=== PATIENT | male | born 1940 | race Caucasian/White ===

== ENCOUNTER 2022-10-21 16:07 | Inpatient (IN) | payer MEDICARE, OTHER, SELFPAY ==
[2022-10-21] VITALS (18 sets, daily range): BP systolic 119–155; BP diastolic 54–80; PULSE 85–106; RESP 24–39; TEMP 37.2–37.3; O2SAT 89–95; BMI 27.8
--- NOTE | 2022-10-21 16:09 | DI.RAD.S_ITS ---
PROCEDURE: XR CHEST 1V INDICATIONS: Shortness of breath TECHNIQUE: One view of the chest was acquired. COMPARISON: None. FINDINGS: Surgical changes and devices: Right chest wall port is seen. Lungs and pleura: Bibasilar atelectasis. Diffuse airspace opacities in the right lung. Mediastinum: Mediastinal contours appear normal. Heart size is normal. Bones and chest wall: No suspicious bony lesions. Overlying soft tissues appear unremarkable. IMPRESSION: Bibasilar atelectasis and diffuse airspace opacities in the right perihilar lung. Mild CHF is a consideration versus a diffuse pneumonia. Dictated by: Mathew Walker M.D. on 10/21/2022 at 17:30 Approved by: Mathew Walker M.D. on 10/21/2022 at 17:31
--- NOTE | 2022-10-21 16:30 | ED_ITS ---
HPI - General Adult General Chief complaint: Shortness of Breath/Dyspnea Stated complaint: SOB, Chills Time Seen by Provider: 10/21/22 16:08 Source: patient and EMS Mode of arrival: EMS History of Present Illness HPI narrative: Patient is an 81-year-old male. Does have a history of lung cancer. Is not currently receiving chemotherapy because he developed pneumonia while on the treatment. They took him off the treatment they thought that maybe this could be causing his issues. He is not currently on any antibiotics. He is scheduled to get a repeat CT scan sometime in the near future. He does have a drain in his left chest to drain often effusion. His does this. Earlier today he had chills him what essentially sound like rigors. He states that he was having short of breath. No chest discomfort. They did drain more off the left side of his chest than normal but it was the same color and consistency. No abdominal pain. No fevers. No belly pain. Related Data Allergies Allergy/AdvReac Type Severity Reaction Status Date / Time No Known Drug Allergies Allergy Verified 10/21/22 19:18 Review of Systems Review of Systems ROS Unobtainable: All systems reviewed & are unremarkable except as noted in HPI and below Patient History Medical History COPD (chronic obstructive pulmonary disease) Lung cancer Social History Smoking Status: Never smoker Smoking Status: Never smoker alcohol intake frequency: 0-2 drinks per day Exam Initial Vital Signs Initial Vital Signs: Vital Signs Temperature 99.2 F 10/21/22 16:10 Pulse Rate 103 H 10/21/22 16:10 Respiratory Rate 30 H 10/21/22 16:10 Blood Pressure 155/80 H 10/21/22 16:10 Pulse Oximetry 90 L 10/21/22 16:10 Oxygen Delivery Method Room Air 10/21/22 16:10 HENMT Head: normal to inspection and normocephalic Resp Effort & Inspection: not labored and tachypneic Auscultation: rhonchi Cardio Rate: tachycardic Rhythm: regular rhythm GI Inspection: normal to inspection and non-distended Skin General: no rashes or lesions noted Neuro General: patient alert, patient awake and moves all extremities Cognition: normal cognition Speech: speech normal Extrem General: normal to inspection and capillary refill normal Psych Appearance: grossly normal and well kempt Course Orders Ordered: ED Orders 10/21/22 16:09 XR chest 1V Stat 10/21/22 16:17 EKG-12 Lead Stat 10/21/22 16:50 Complete Blood Count AUTO DIFF Stat Comprehensive Metabolic Panel Stat Lactate (Lactic Acid) Stat Lipase Stat Magnesium Stat NT-proBNP (BNP-Adult 18+) Stat PTT Partial Thromboplastin Robert Stat Procalcitonin Stat Prothrombin Time INR Stat Troponin & CK Cardiac Panel Stat 10/21/22 17:52 ABG [Arterial Blood Gas] Stat 10/21/22 18:22 Blood Culture Stat 10/21/22 18:33 Respiratory Panel (Film Array) Stat 10/21/22 19:27 Sputum Culture Stat Discontinued Medications Ceftriaxone Sodium 1,000 mg/ (Sodium Chloride) 100 mls @ 200 mls/hr IV NOW ONE Stop: 10/21/22 19:12 Last Admin: 10/21/22 19:25 Dose: 200 mls/hr Documented By: MADELEINE Azithromycin 500 mg/ Dextrose 250 mls @ 250 mls/hr IV NOW ONE Stop: 10/21/22 19:12 Vital Signs Vital signs: Vital Signs - 8 hr 10/21/22 16:10 10/21/22 16:15 10/21/22 16:16 Temperature 99.2 F Pulse Rate 103 H 104 H 103 H Respiratory Rate 30 H 34 H 39 H Blood Pressure 155/80 H Pulse Oximetry 90 L 89 L 93 Oxygen Delivery Method Room Air Room Air Nasal Cannula Oxygen Flow Rate 2 10/21/22 16:16 10/21/22 16:30 10/21/22 17:00 Temperature Pulse Rate 102 H 101 H Respiratory Rate 31 H 31 H Blood Pressure 134/68 Pulse Oximetry 92 92 Oxygen Delivery Method Nasal Cannula Oxygen Flow Rate 2 10/21/22 17:30 Temperature Pulse Rate 101 H Respiratory Rate 32 H Blood Pressure Pulse Oximetry 92 Oxygen Delivery Method Oxygen Flow Rate Medical Decision Making Medical Records Medical records reviewed: Yes I reviewed the patient's medical records. Lab Data Lab results reviewed: Yes I reviewed the patient's lab results. 10/21/22 16:50 10/21/22 16:50 Labs: Lab Results 10/21/22 10/21/22 10/21/22 Range/Units 16:50 16:50 16:50 WBC 14.9 H (4.5-11.0) X10^3/uL RBC 4.19 L (4.5-5.9) X10^6/uL Hgb 12.3 L (13.5-17.5) g/dL Hct 37.5 L (41-53) % MCV 89.5 (80-100) fL MCH 29.4 (26-34) PG MCHC 32.9 (30-36) % RDW 15.7 H (11.6-14.8) % Plt Count 356 (150-400) X10^3/uL Neut % (Auto) 89.0 H (50-75) % Lymph % (Auto) 4.1 L (25-40) % Perkins % (Auto) 5.7 (3-14) % Eos % (Auto) 0.6 L (2-4) % Baso % (Auto) 0.6 (0-2) % Neut # (Auto) 85276 H (2560-4075) /uL Lymph # (Auto) 600 L (2116-9016) /uL Perkins # (Auto) 800 (0-900) /uL Eos # (Auto) 100 (0-450) /uL Baso # (Auto) 100 (0-100) /uL PT 17.6 H (10.1-12.7) SECONDS INR 1.5 H (0.9-1.3) APTT 33 (26-36) SECONDS ABG pH (7.35-7.45) ABG pCO2 (35-45) mmHg ABG pO2 (80-100) mmHg ABG HCO3 (23-27) mmol/L ABG Total CO2 (23-27) mmol/L ABG O2 Saturation (95-100) % ABG Base Excess (-2-3) mmol/L FiO2 Sodium 137 (137-145) mmol/L Potassium 3.7 (3.4-5.1) mmol/L Chloride 101 (98-107) mmol/L Carbon Dioxide 28 (22-32) mmol/L BUN 19 (9-20) mg/dL Creatinine 0.70 (0.66-1.25) mg/dL Estimated GFR > 60 (>60) mL/min BUN/Creatinine Ratio 27.1 H (6-22) Glucose 154 H (80-110) mg/dL Lactate (0.7-2.1) mmol/L Calcium 8.7 (8.4-10.2) mg/dL Magnesium 1.7 (1.6-2.3) mg/dL Total Bilirubin 0.8 (0.2-1.3) mg/dL AST 30 (17-59) IU/L ALT 22 (<50) IU/L Alkaline Phosphatase 108 (38-126) U/L Total Creatine Kinase 45 L (55-170) U/L CK-MB (CK-2) TNP CK-MB (CK-2) Rel Index TNP Troponin I < 0.012 (0.01-0.034) ng/mL NT-Pro-B Natriuret Pep (<450) pg/mL Total Protein 7.3 (6.3-8.2) g/dL Albumin 3.5 (3.5-5.0) g/dL Globulin 3.8 (1.7-4.1) g/dL Albumin/Globulin Ratio 0.9 L (1.0-2.8) Lipase 93 (23-300) U/L Procalcitonin 0.21 (<0.5) ng/mL 10/21/22 10/21/22 10/21/22 Range/Units 16:50 16:50 17:52 WBC (4.5-11.0) X10^3/uL RBC (4.5-5.9) X10^6/uL Hgb (13.5-17.5) g/dL Hct (41-53) % MCV (80-100) fL MCH (26-34) PG MCHC (30-36) % RDW (11.6-14.8) % Plt Count (150-400) X10^3/uL Neut % (Auto) (50-75) % Lymph % (Auto) (25-40) % Perkins % (Auto) (3-14) % Eos % (Auto) (2-4) % Baso % (Auto) (0-2) % Neut # (Auto) (6183-4056) /uL Lymph # (Auto) (2498-9103) /uL Perkins # (Auto) (0-900) /uL Eos # (Auto) (0-450) /uL Baso # (Auto) (0-100) /uL PT (10.1-12.7) SECONDS INR (0.9-1.3) APTT (26-36) SECONDS ABG pH 7.48 H (7.35-7.45) ABG pCO2 33.2 L (35-45) mmHg ABG pO2 53 L (80-100) mmHg ABG HCO3 25 (23-27) mmol/L ABG Total CO2 26 (23-27) mmol/L ABG O2 Saturation 90 L (95-100) % ABG Base Excess 1.0 (-2-3) mmol/L FiO2 21 Sodium (137-145) mmol/L Potassium (3.4-5.1) mmol/L Chloride (98-107) mmol/L Carbon Dioxide (22-32) mmol/L BUN (9-20) mg/dL Creatinine (0.66-1.25) mg/dL Estimated GFR (>60) mL/min BUN/Creatinine Ratio (6-22) Glucose (80-110) mg/dL Lactate 1.9 (0.7-2.1) mmol/L Calcium (8.4-10.2) mg/dL Magnesium (1.6-2.3) mg/dL Total Bilirubin (0.2-1.3) mg/dL AST (17-59) IU/L ALT (<50) IU/L Alkaline Phosphatase (38-126) U/L Total Creatine Kinase (55-170) U/L CK-MB (CK-2) CK-MB (CK-2) Rel Index Troponin I (0.01-0.034) ng/mL NT-Pro-B Natriuret Pep 82 (<450) pg/mL Total Protein (6.3-8.2) g/dL Albumin (3.5-5.0) g/dL Globulin (1.7-4.1) g/dL Albumin/Globulin Ratio (1.0-2.8) Lipase (23-300) U/L Procalcitonin (<0.5) ng/mL Imaging Data Chest x-ray: Radiologist's Impression: PROCEDURE:? XR CHEST 1V ? INDICATIONS:? Shortness of breath ? TECHNIQUE:? One view of the chest was acquired.? ? COMPARISON:? None. ? FINDINGS:? ? Surgical changes and devices:? Right chest wall port is seen. ? Lungs and pleura:? Bibasilar atelectasis.? Diffuse airspace opacities in the right lung. ? Mediastinum:? Mediastinal contours appear normal.? Heart size is normal.? ? Bones and chest wall:? No suspicious bony lesions.? Overlying soft tissues appear unremarkable.? ? IMPRESSION: ? Bibasilar atelectasis and diffuse airspace opacities in the right perihilar lung.? Mild CHF is a consideration versus a diffuse pneumonia. ECG Data Attestation: I personally reviewed and interpreted this ECG as follows: Interpretation: Sinus tachycardia Ventricular rate 104 Right bundle-branch block Normal QRS No ST T wave changes MDM Narrative Medical decision making narrative: Patient states he feels much better with the oxygen. His chest x-ray concerning for pneumonia however it appears that he has been dealing with this for some time now. Unsure this is new although earlier today he did have what he essentially describes as rigors. He also has a leukocytosis with a left shift. His lactate is normal cared procalcitonin is unremarkable. He is tachypneic. Sinus rhythm on his EKG. Cultures were obtained. Antibiotics started. Discussed the case with Dr. Villalba. We will admit for further evaluation and treatment. Discussed the need for admission with the patient his at bedside. They expressed understanding agreement as well. Discharge Plan Departure Patient Disposition: Admitted As Inpatient Clinical Impression: Pneumonia, Hypoxia, Lung cancer Admit Date/Time: 10/21/22 19:31
[2022-10-21 17:05] LABS: Add Manual Diff / Slide Review NO; Basophils Absolute Auto 100 /uL (0-100); Basophils Percent Auto 0.6 % (0-2); Eosinophils Absolute Auto 100 /uL (0-450); Eosinophils Percent Auto 0.6 % (2-4); Hematocrit 37.5 % (41-53); Hemoglobin 12.3 g/dL (13.5-17.5); Lymphocytes Absolute Auto 600 /uL (1100-4500); Lymphocytes Percent Auto 4.1 % (25-40); Mean Corpuscular HGB Conc 32.9 % (30-36); Mean Corpuscular Hemoglobin 29.4 PG (26-34); Mean Corpuscular Volume 89.5 fL (80-100); Monocytes Absolute Auto 800 /uL (0-900); Monocytes Percent Auto 5.7 % (3-14); Neutrophils Absolute Auto 13200 /uL (1500-7000); Platelet Count 356 X10^3/uL (150-400); Red Blood Cell Count 4.19 X10^6/uL (4.5-5.9); Red Cell Distribution Width 15.7 % (11.6-14.8); White Blood Cell Count 14.9 X10^3/uL (4.5-11.0)
[2022-10-21 17:18] LABS: INR 1.5 (0.9-1.3); Prothrombin Time 17.6 SECONDS (10.1-12.7)
[2022-10-21 17:21] LABS: PTT Partial Thromboplastin Tim 33 SECONDS (26-36)
[2022-10-21 17:24] LABS: Lactate (Lactic Acid) 1.9 mmol/L (0.7-2.1)
[2022-10-21 17:26] LABS: Alanine Aminotransferase 22 IU/L (<50); Albumin 3.5 g/dL (3.5-5.0); Albumin Globulin Ratio 0.9 (1.0-2.8); Alkaline Phosphatase 108 U/L (38-126); Aspartate Aminotransferase 30 IU/L (17-59); BUN Creatinine Ratio 27.1 (6-22); Bilirubin Total 0.8 mg/dL (0.2-1.3); Blood Urea Nitrogen 19 mg/dL (9-20); Calcium 8.7 mg/dL (8.4-10.2); Carbon Dioxide 28 mmol/L (22-32); Chloride 101 mmol/L (98-107); Creatine Kinase 45 U/L (55-170); Estimated Glomerular Filt Rate > 60 mL/min (>60); Globulin 3.8 g/dL (1.7-4.1); Glucose 154 mg/dL (80-110); HEMOLYSIS < 15 (0-50); Lipase 93 U/L (23-300); Magnesium 1.7 mg/dL (1.6-2.3); Potassium 3.7 mmol/L (3.4-5.1); Sodium 137 mmol/L (137-145); Total Protein 7.3 g/dL (6.3-8.2)
[2022-10-21 17:36] LABS: NT-proBNP (BNP-Adult 18+) 82 pg/mL (<450)
[2022-10-21 17:37] LABS: Troponin I < 0.012 ng/mL (0.01-0.034)
[2022-10-21 17:42] LABS: Procalcitonin 0.21 ng/mL (<0.5)
[2022-10-21 19:22] LABS: Fractionated Inspired Oxygen 21; HCO3 ABG 25 mmol/L (23-27); Oxygen Saturation ABG 90 % (95-100); PCO2 ABG 33.2 mmHg (35-45); PO2 ABG 53 mmHg (80-100); TCO2 ABG 26 mmol/L (23-27); pH ABG 7.48 (7.35-7.45)
[2022-10-21] MEDS: cefTRIAXone 1,000 MG in SODIUM CHLORIDE 0.9% 100 ML 200 MG IV (19:25)
[2022-10-21 19:47] LABS: Adenovirus Not Detected (Not Detect); B. parapertussis Not Detected (Not Detecte); Bordetella pertussis Not Detected (Not Detecte); Chlamydophila pneumoniae Not Detected (Not Detect); Coronavirus 229E Not Detected (Not Detect); Coronavirus HKU1 Not Detected (Not Detect); Coronavirus NL 63 Not Detected (Not Detect); Coronavirus OC43 Not Detected (Not Detect); Human Metapneumovirus Not Detected (Not Detect); Human Rhinovirus/Enterovirus Not Detected (Not Detect); Influenza A Not Detected (Not Detect); Influenza B Not Detected (Not Detect); Mycoplasma pneumoniae Not Detected (Not Detect); Parainfluenza Virus 1 Not Detected (Not Detect); Parainfluenza Virus 2 Not Detected (Not Detect); Parainfluenza Virus 3 Not Detected (Not Detect); Parainfluenza Virus 4 Not Detected (Not Detect); Respiratory Syncytial Virus Not Detected (Not Detect); SARS- CoV-2 Not Detected (Not Detecte)
[2022-10-21] MEDS: AZITHROMYCIN 500 MG in DEXTROSE 5% IN WATER 250 ML 250 MG IV (20:11)
--- NOTE | 2022-10-21 20:33 | P.HP_ITS ---
History of Present Illness History of Present Illness Date Patient Seen: 10/21/22 Time Patient Seen: 23:00 Chief complaint: SOB, Chills Narrative: Mr. Thompson is an 81M with PMH COPD, former smoker, lung cancer who presents to the hospital with left sided pleuritic chest pain, shortness of breath, and chills/rigors. He was diagnosed with stage 4 lung cancer a few months ago. He gets his medical care at [facility]. He was having issues with recurrent malignant effusion so has left sided pleural drain in place. Over the last day he has noted slightly more draining from the catheter. Otherwise the fluid looks similar to his baseline. He is taking eliquis, but he is not clear for what, he does not think he has blood clots or a history of arrhythmia. His last dose of Keytruda was approximately 8-9 weeks ago, and he has not had additional doses because of concern that he has developed pneumonia while on this, or because there is concern for a reaction. He is not aware if his treatment is palliative, or if his cancer is responding to treatment. In the ED workup was done, vitals notable for temp 99.2, heart rate 100s, respiratory rate 30s, blood pressure 150s/80s, sats 89% on room air. He was placed on oxygen and felt somewhat improved. Labs reviewed by me and notable for WBC 14.9, hgb 12.3, plts 365. Creatinine 0.70. Inr 1.5. Troponin negative. [place] 1.9. BNP 82. Chest xray reviewed by me and showed bilateral infiltrates and possible small left pleural effusion. He was ordered for antibiotic and admitted for further treatment. [facility] Medical History COPD (chronic obstructive pulmonary disease) Lung cancer Social History household members: spouse Smoking Status: Former smoker Meds Home Medications and Allergies Home Medications Medication Instructions Recorded Confirmed Type albuterol sulfate 90 mcg/actuation 2 inh inhalation QID PRN sob 10/21/22 10/21/22 History aerosol inhaler apixaban 5 mg tablet (Eliquis) 5 mg PO BID 10/21/22 10/21/22 History aspirin 81 mg capsule 81 mg PO Q OTHER DAY 10/21/22 10/21/22 History dexamethasone 4 mg tablet 4 mg PO DIRECTED 10/21/22 10/21/22 History ergocalciferol (vitamin D2) 50 mcg 50 mcg PO DAILY 10/21/22 10/21/22 History (2,000 unit) capsule finasteride 5 mg tablet 5 mg PO DAILY 10/21/22 10/21/22 History fluticasone furoate 100 1 ea inhalation DAILY 10/21/22 10/21/22 History mcg-vilanterol 25 mcg/dose inhalation powder (Breo Ellipta) folic acid 1 mg tablet 1 mg PO DAILY 10/21/22 10/21/22 History metformin 500 mg tablet 500 mg PO BID 10/21/22 10/21/22 History ondansetron HCl 8 mg tablet 8 mg PO Q8H PRN Nausea 10/21/22 10/21/22 History Allergies Allergy/AdvReac Type Severity Reaction Status Date / Time No Known Drug Allergies Allergy Verified 10/21/22 19:18 Review of Systems Review of Systems Narrative: 14 systems reviewed and negative aside from what is noted in HPI Exam Vital Signs (past 8 hours): - 10/21/22 16:10 10/21/22 16:15 10/21/22 16:16 Temperature 99.2 F Pulse Rate 103 H 104 H 103 H Respiratory Rate 30 H 34 H 39 H Blood Pressure 155/80 H Pulse Oximetry 90 L 89 L 93 Oxygen Delivery Method Room Air Room Air Nasal Cannula Oxygen Flow Rate 2 10/21/22 16:16 10/21/22 16:30 10/21/22 17:00 Temperature Pulse Rate 102 H 101 H Respiratory Rate 31 H 31 H Blood Pressure 134/68 Pulse Oximetry 92 92 Oxygen Delivery Method Nasal Cannula Oxygen Flow Rate 2 10/21/22 17:30 10/21/22 17:38 10/21/22 17:38 Temperature Pulse Rate 101 H 100 H Respiratory Rate 32 H 38 H Blood Pressure 133/60 Pulse Oximetry 92 92 Oxygen Delivery Method Oxygen Flow Rate 10/21/22 18:00 10/21/22 18:30 10/21/22 19:00 Temperature Pulse Rate 106 H 101 H 99 H Respiratory Rate 34 H 37 H 37 H Blood Pressure Pulse Oximetry 93 95 Oxygen Delivery Method Oxygen Flow Rate 10/21/22 19:30 10/21/22 19:45 10/21/22 20:00 Temperature Pulse Rate 96 H 96 H 98 H Respiratory Rate 35 H 33 H 30 H Blood Pressure Pulse Oximetry 93 94 92 Oxygen Delivery Method Oxygen Flow Rate 10/21/22 20:15 10/21/22 20:30 Temperature Pulse Rate 96 H 94 H Respiratory Rate 39 H 29 H Blood Pressure Pulse Oximetry 92 93 Oxygen Delivery Method Oxygen Flow Rate Oxygen Delivery Method Nasal Cannula Oxygen Flow Rate 2 Narrative Exam Narrative: GEN: in respiratory distress HEENT: moist mucous membranes, PERRL NECK: trachea midline, no JVD PULM: rhonchorous breath sounds, left sided pigtail in place, right side port in place CV:regular tachycardic ABD: soft, nontender, nondistended, no organomegaly, normal bowel sounds EXT: warm and well perfused with no edema NEURO: awake, alert, oriented, no focal deficits Objective Labs 10/21/22 16:50 10/21/22 16:50 Labs: Laboratory Results - last 24 hr 10/21/22 10/21/22 10/21/22 16:50 16:50 16:50 WBC 14.9 H RBC 4.19 L Hgb 12.3 L Hct 37.5 L MCV 89.5 MCH 29.4 MCHC 32.9 RDW 15.7 H Plt Count 356 Neut % (Auto) 89.0 H Lymph % (Auto) 4.1 L Barnes % (Auto) 5.7 Eos % (Auto) 0.6 L Baso % (Auto) 0.6 Neut # (Auto) 17241 H Lymph # (Auto) 600 L Barnes # (Auto) 800 Eos # (Auto) 100 Baso # (Auto) 100 PT 17.6 H INR 1.5 H APTT 33 ABG pH ABG pCO2 ABG pO2 ABG HCO3 ABG Total CO2 ABG O2 Saturation ABG Base Excess FiO2 Sodium 137 Potassium 3.7 Chloride 101 Carbon Dioxide 28 BUN 19 Creatinine 0.70 Estimated GFR > 60 BUN/Creatinine Ratio 27.1 H Glucose 154 H Lactate Calcium 8.7 Magnesium 1.7 Total Bilirubin 0.8 AST 30 ALT 22 Alkaline Phosphatase 108 Total Creatine Kinase 45 L CK-MB (CK-2) TNP CK-MB (CK-2) Rel Index TNP Troponin I < 0.012 NT-Pro-B Natriuret Pep Total Protein 7.3 Albumin 3.5 Globulin 3.8 Albumin/Globulin Ratio 0.9 L Lipase 93 Procalcitonin 0.21 Chlamy pneumoniae PCR Adenovirus (PCR) B. pertussis DNA (PCR) B.parapertussis DNA PCR Coronavirus OC43 (PCR) Coronavirus HKU1 (PCR) Coronavirus 229E (PCR) SARS-CoV-2 (PCR) Coronavirus NL63 (PCR) Human Metapneumovir PCR Influenza Type A (PCR) Influenza Type B (PCR) M. pneumoniae (PCR) Parainfluenza 1 (PCR) Parainfluenza 2 (PCR) Parainfluenza 3 (PCR) Parainfluenza 4 (PCR) RSV (PCR) Entero/Rhino (PCR) 10/21/22 10/21/22 10/21/22 16:50 16:50 17:52 WBC RBC Hgb Hct MCV MCH MCHC RDW Plt Count Neut % (Auto) Lymph % (Auto) Barnes % (Auto) Eos % (Auto) Baso % (Auto) Neut # (Auto) Lymph # (Auto) Barnes # (Auto) Eos # (Auto) Baso # (Auto) PT INR APTT ABG pH 7.48 H ABG pCO2 33.2 L ABG pO2 53 L ABG HCO3 25 ABG Total CO2 26 ABG O2 Saturation 90 L ABG Base Excess 1.0 FiO2 21 Sodium Potassium Chloride Carbon Dioxide BUN Creatinine Estimated GFR BUN/Creatinine Ratio Glucose Lactate 1.9 Calcium Magnesium Total Bilirubin AST ALT Alkaline Phosphatase Total Creatine Kinase CK-MB (CK-2) CK-MB (CK-2) Rel Index Troponin I NT-Pro-B Natriuret Pep 82 Total Protein Albumin Globulin Albumin/Globulin Ratio Lipase Procalcitonin Chlamy pneumoniae PCR Adenovirus (PCR) B. pertussis DNA (PCR) B.parapertussis DNA PCR Coronavirus OC43 (PCR) Coronavirus HKU1 (PCR) Coronavirus 229E (PCR) SARS-CoV-2 (PCR) Coronavirus NL63 (PCR) Human Metapneumovir PCR Influenza Type A (PCR) Influenza Type B (PCR) M. pneumoniae (PCR) Parainfluenza 1 (PCR) Parainfluenza 2 (PCR) Parainfluenza 3 (PCR) Parainfluenza 4 (PCR) RSV (PCR) Entero/Rhino (PCR) 10/21/22 18:33 WBC RBC Hgb Hct MCV MCH MCHC RDW Plt Count Neut % (Auto) Lymph % (Auto) Barnes % (Auto) Eos % (Auto) Baso % (Auto) Neut # (Auto) Lymph # (Auto) Barnes # (Auto) Eos # (Auto) Baso # (Auto) PT INR APTT ABG pH ABG pCO2 ABG pO2 ABG HCO3 ABG Total CO2 ABG O2 Saturation ABG Base Excess FiO2 Sodium Potassium Chloride Carbon Dioxide BUN Creatinine Estimated GFR BUN/Creatinine Ratio Glucose Lactate Calcium Magnesium Total Bilirubin AST ALT Alkaline Phosphatase Total Creatine Kinase CK-MB (CK-2) CK-MB (CK-2) Rel Index Troponin I NT-Pro-B Natriuret Pep Total Protein Albumin Globulin Albumin/Globulin Ratio Lipase Procalcitonin Chlamy pneumoniae PCR Not detected Adenovirus (PCR) Not detected B. pertussis DNA (PCR) Not detected B.parapertussis DNA PCR Not detected Coronavirus OC43 (PCR) Not detected Coronavirus HKU1 (PCR) Not detected Coronavirus 229E (PCR) Not detected SARS-CoV-2 (PCR) Not detected Coronavirus NL63 (PCR) Not detected Human Metapneumovir PCR Not detected Influenza Type A (PCR) Not detected Influenza Type B (PCR) Not detected M. pneumoniae (PCR) Not detected Parainfluenza 1 (PCR) Not detected Parainfluenza 2 (PCR) Not detected Parainfluenza 3 (PCR) Not detected Parainfluenza 4 (PCR) Not detected RSV (PCR) Not detected Entero/Rhino (PCR) Not detected Assessment & Plan Assessment & Plan narrative: 1. Acute hypoxemic respiratory failure secondary to pneumonia -workup notable for consolidation on xray, white count elevated at 14 consistent with pneumonia -on admission requiring 3L of oxygen -given that patient is being treated for lung cancer has concern about immunosuppression and also consider possibility of post-obstructive pneumonia and has chronic malignant pleural effusion at risk of infection -because of this will treat broadly with cefepime, azithromycin -check mrsa swab, if positive start vancomycin -follow blood cultures -check sputum culture and pleural fluid culture -CTA to eval for PE, or evidence of post-obstructive pneumonia and to eval for possible infected/loculated effusion 2. Lung cancer -has been on treatment with keytruda which has been held 3. COPD not in exacerbation -ordered PRN albuterol 4. BPH -continue finasteride 5. Type 2 Diabetes -not on insulin -hold metformin -ordered insulin sliding scale I have discussed plan and obtained history from the patient. I have discussed plan of care with ED physician and bedside nurse. I have reviewed labs, ekg, and chest xray. CODE: Full Proxy: Tisha Glynn, Quality [facility] Meds 'Current medications' to include all prescriptions, [id number] products, herbals, cannabis/cannabidiol products, and vitamin/mineral/dietary (nutritional) supplements. I have utilized all available resources to obtain, update, or review the patient?s current medications. [If Yes, STOP here]: Yes
[2022-10-21] MEDS: CEFEPIME 1 GM in SODIUM CHLORIDE 0.9% 100 ML IV (22:31)
--- NOTE | 2022-10-21 23:12 | DI.CT.S_ITS ---
PROCEDURE: CT ANGIO CHEST PE PROTOCOL INDICATIONS: new chest pain + sob, known lung ca with malignant effusion TECHNIQUE: After the administration of intravenous contrast, 2 mm thick sections acquired from the pulmonary apices to the posterior costophrenic angles. 3-dimensional maximum intensity projection (MIP) coronal and sagittal reformats were then acquired through the thorax. For radiation dose reduction, the following was used: automated exposure control, adjustment of mA and/or kV according to patient size. COMPARISON: [facility], CR, XR CHEST 1V, 10/21/2022, 16:44. FINDINGS: Image quality: Excellent. Pulmonary arteries: Pulmonary arteries are normal in size, and demonstrate no intraluminal filling defects to suggest central pulmonary embolism. Lungs and pleura: Moderate emphysematous change. Patchy consolidative opacities most pronounced in the right upper lobe. Left upper lobe nodular opacity. Airways are clear. Small left pleural effusion. Left basilar pleural drain. No pneumothorax. Central airways are clear pleura bronchial wall thickening. Mediastinum: Right-sided port with the catheter tip at the right atrium. Heart size is normal, without pericardial effusion. Subcarinal lymph node measuring 1.5 cm, (4/102). Shotty right hilar lymph nodes. Thoracic aorta is normal in caliber and enhancement. No aortic dissection. Esophagus is normal in caliber, without hiatal hernia. Bones and chest wall: No suspicious bony lesions. Ribs and thoracic spine appear intact throughout. Thyroid gland is unremarkable. No axillary or supraclavicular adenopathy. Abdomen: Visualized upper abdominal solid organs appear normal in the early arterial phase of enhancement. Cyst in the left upper quadrant. IMPRESSION: 1. No pulmonary embolism. 2. [id number] bilateral consolidative opacities. Suspect pneumonia. Left upper lobe nodular opacity. Recommend comparison with prior imaging when available. 3. Small left pleural effusion. Left basilar pleural drain. 4. Enlarged subcarinal lymph node. Dictated by: Surya Collado M.D. on 10/21/2022 at 23:49 Approved by: Surya Collado M.D. on 10/22/2022 at 0:00
[2022-10-22] VITALS (11 sets, daily range): BP systolic 102–137; BP diastolic 56–66; PULSE 71–82; RESP 16–23; TEMP 36.1–37; O2SAT 91–94
[2022-10-22 01:25] LABS: MRSA (Nasal) PCR Not Detected (Not Detect)
[2022-10-22] MEDS: ALBUTEROL/IPRATROPIUM 3 ML AMPUL INH (05:13)
[2022-10-22 05:58] LABS: Add Manual Diff / Slide Review NO; Basophils Absolute Auto 0 /uL (0-100); Basophils Percent Auto 0.3 % (0-2); Eosinophils Absolute Auto 100 /uL (0-450); Eosinophils Percent Auto 0.7 % (2-4); Hematocrit 32.8 % (41-53); Lymphocytes Absolute Auto 1000 /uL (1100-4500); Lymphocytes Percent Auto 9.5 % (25-40); Mean Corpuscular HGB Conc 33.5 % (30-36); Mean Corpuscular Hemoglobin 29.5 PG (26-34); Monocytes Absolute Auto 1500 /uL (0-900); Monocytes Percent Auto 14.4 % (3-14); Neutrophils Absolute Auto 8000 /uL (1500-7000); Neutrophils Percent Auto 75.1 % (50-75); Platelet Count 316 X10^3/uL (150-400); Red Blood Cell Count 3.72 X10^6/uL (4.5-5.9); Red Cell Distribution Width 14.9 % (11.6-14.8); White Blood Cell Count 10.7 X10^3/uL (4.5-11.0)
[2022-10-22 06:01] LABS: Blood Urea Nitrogen 17 mg/dL (9-20); Calcium 7.9 mg/dL (8.4-10.2); Carbon Dioxide 28 mmol/L (22-32); Chloride 101 mmol/L (98-107); Estimated Glomerular Filt Rate > 60 mL/min (>60); Glucose 122 mg/dL (80-110); HEMOLYSIS < 15 (0-50); Potassium 3.5 mmol/L (3.4-5.1); Sodium 135 mmol/L (137-145)
[2022-10-22] MEDS: AZITHROMYCIN 500 MG in DEXTROSE 5% IN WATER 250 ML 250 MG IV (07:44)
[2022-10-22] MEDS: POTASSIUM CHLORIDE 20 MEQ TAB 40 MEQ PO (07:54)
[2022-10-22] MEDS: FINASTERIDE 5 MG TABLET PO (08:10)
[2022-10-22] MEDS: APIXABAN 5 MG TABLET PO ×2 (08:10→21:44)
--- NOTE | 2022-10-22 08:43 | P.PN_ITS ---
Subjective Subjective Interval history: Patient feeling better today. He notes he had a rash on his hands yesterday when having rigors, which is improving now. at bedside and questions were answered. Exam Vital Signs (past 8 hours): - 10/22/22 01:10 10/22/22 01:32 10/22/22 05:22 Temperature 98.6 F Pulse Rate 74 81 Respiratory Rate 20 16 Blood Pressure 102/60 106/59 L Pulse Oximetry 91 94 94 Oxygen Delivery Method Nasal Cannula Oxygen Flow Rate 2 2 2 10/22/22 05:21 Temperature 98 F Pulse Rate 82 Respiratory Rate 23 Blood Pressure 137/64 Pulse Oximetry 94 Oxygen Delivery Method Oxygen Flow Rate 3 Oxygen Delivery Method Nasal Cannula Oxygen Flow Rate 2 Narrative Exam Narrative: GEN: NAD HEENT: moist mucous membranes, PERRL NECK: trachea midline, no JVD PULM: rhonchorous breath sounds, left sided pigtail in place, right sided port in place CV: regular rate and rhythm, no murmurs ABD: soft, nontender, nondistended, no organomegaly, normal bowel sounds EXT: warm and well perfused with no edema NEURO: awake, alert, oriented, no focal deficits Objective Labs 10/22/22 04:50 10/22/22 04:50 Labs: Laboratory Results - last 24 hr 10/21/22 10/21/22 10/21/22 00:05 16:50 16:50 WBC 14.9 H RBC 4.19 L Hgb 12.3 L Hct 37.5 L MCV 89.5 MCH 29.4 MCHC 32.9 RDW 15.7 H Plt Count 356 Neut % (Auto) 89.0 H Lymph % (Auto) 4.1 L [place] % (Auto) 5.7 Eos % (Auto) 0.6 L Baso % (Auto) 0.6 Neut # (Auto) 87528 H Lymph # (Auto) 600 L [place] # (Auto) 800 Eos # (Auto) 100 Baso # (Auto) 100 PT 17.6 H INR 1.5 H APTT 33 ABG pH ABG pCO2 ABG pO2 ABG HCO3 ABG Total CO2 ABG O2 Saturation ABG Base Excess FiO2 Sodium Potassium Chloride Carbon Dioxide BUN Creatinine Estimated GFR BUN/Creatinine Ratio Glucose Lactate Calcium Magnesium Total Bilirubin AST ALT Alkaline Phosphatase Total Creatine Kinase CK-MB (CK-2) CK-MB (CK-2) Rel Index Troponin I NT-Pro-B Natriuret Pep Total Protein Albumin Globulin Albumin/Globulin Ratio Lipase Procalcitonin Nasal Screen MRSA (PCR) Not detected Chlamy pneumoniae PCR Adenovirus (PCR) B. pertussis DNA (PCR) B.parapertussis DNA PCR Coronavirus OC43 (PCR) Coronavirus HKU1 (PCR) Coronavirus 229E (PCR) SARS-CoV-2 (PCR) Coronavirus NL63 (PCR) Human Metapneumovir PCR Influenza Type A (PCR) Influenza Type B (PCR) M. pneumoniae (PCR) Parainfluenza 1 (PCR) Parainfluenza 2 (PCR) Parainfluenza 3 (PCR) Parainfluenza 4 (PCR) RSV (PCR) Entero/Rhino (PCR) 10/21/22 10/21/22 10/21/22 16:50 16:50 16:50 WBC RBC Hgb Hct MCV MCH MCHC RDW Plt Count Neut % (Auto) Lymph % (Auto) [place] % (Auto) Eos % (Auto) Baso % (Auto) Neut # (Auto) Lymph # (Auto) [place] # (Auto) Eos # (Auto) Baso # (Auto) PT INR APTT ABG pH ABG pCO2 ABG pO2 ABG HCO3 ABG Total CO2 ABG O2 Saturation ABG Base Excess FiO2 Sodium 137 Potassium 3.7 Chloride 101 Carbon Dioxide 28 BUN 19 Creatinine 0.70 Estimated GFR > 60 BUN/Creatinine Ratio 27.1 H Glucose 154 H Lactate 1.9 Calcium 8.7 Magnesium 1.7 Total Bilirubin 0.8 AST 30 ALT 22 Alkaline Phosphatase 108 Total Creatine Kinase 45 L CK-MB (CK-2) TNP CK-MB (CK-2) Rel Index TNP Troponin I < 0.012 NT-Pro-B Natriuret Pep 82 Total Protein 7.3 Albumin 3.5 Globulin 3.8 Albumin/Globulin Ratio 0.9 L Lipase 93 Procalcitonin 0.21 Nasal Screen MRSA (PCR) Chlamy pneumoniae PCR Adenovirus (PCR) B. pertussis DNA (PCR) B.parapertussis DNA PCR Coronavirus OC43 (PCR) Coronavirus HKU1 (PCR) Coronavirus 229E (PCR) SARS-CoV-2 (PCR) Coronavirus NL63 (PCR) Human Metapneumovir PCR Influenza Type A (PCR) Influenza Type B (PCR) M. pneumoniae (PCR) Parainfluenza 1 (PCR) Parainfluenza 2 (PCR) Parainfluenza 3 (PCR) Parainfluenza 4 (PCR) RSV (PCR) Entero/Rhino (PCR) 10/21/22 10/21/22 10/22/22 17:52 18:33 04:50 WBC 10.7 RBC 3.72 L Hgb 11.0 L Hct 32.8 L MCV 88.0 MCH 29.5 MCHC 33.5 RDW 14.9 H Plt Count 316 Neut % (Auto) 75.1 H Lymph % (Auto) 9.5 L [place] % (Auto) 14.4 H Eos % (Auto) 0.7 L Baso % (Auto) 0.3 Neut # (Auto) 8000 H Lymph # (Auto) 1000 L [place] # (Auto) 1500 H Eos # (Auto) 100 Baso # (Auto) 0 PT INR APTT ABG pH 7.48 H ABG pCO2 33.2 L ABG pO2 53 L ABG HCO3 25 ABG Total CO2 26 ABG O2 Saturation 90 L ABG Base Excess 1.0 FiO2 21 Sodium Potassium Chloride Carbon Dioxide BUN Creatinine Estimated GFR BUN/Creatinine Ratio Glucose Lactate Calcium Magnesium Total Bilirubin AST ALT Alkaline Phosphatase Total Creatine Kinase CK-MB (CK-2) CK-MB (CK-2) Rel Index Troponin I NT-Pro-B Natriuret Pep Total Protein Albumin Globulin Albumin/Globulin Ratio Lipase Procalcitonin Nasal Screen MRSA (PCR) Chlamy pneumoniae PCR Not detected Adenovirus (PCR) Not detected B. pertussis DNA (PCR) Not detected B.parapertussis DNA PCR Not detected Coronavirus OC43 (PCR) Not detected Coronavirus HKU1 (PCR) Not detected Coronavirus 229E (PCR) Not detected SARS-CoV-2 (PCR) Not detected Coronavirus NL63 (PCR) Not detected Human Metapneumovir PCR Not detected Influenza Type A (PCR) Not detected Influenza Type B (PCR) Not detected M. pneumoniae (PCR) Not detected Parainfluenza 1 (PCR) Not detected Parainfluenza 2 (PCR) Not detected Parainfluenza 3 (PCR) Not detected Parainfluenza 4 (PCR) Not detected RSV (PCR) Not detected Entero/Rhino (PCR) Not detected 10/22/22 04:50 WBC RBC Hgb Hct MCV MCH MCHC RDW Plt Count Neut % (Auto) Lymph % (Auto) [place] % (Auto) Eos % (Auto) Baso % (Auto) Neut # (Auto) Lymph # (Auto) [place] # (Auto) Eos # (Auto) Baso # (Auto) PT INR APTT ABG pH ABG pCO2 ABG pO2 ABG HCO3 ABG Total CO2 ABG O2 Saturation ABG Base Excess FiO2 Sodium 135 L Potassium 3.5 Chloride 101 Carbon Dioxide 28 BUN 17 Creatinine 0.68 Estimated GFR > 60 BUN/Creatinine Ratio 25.0 H Glucose 122 H Lactate Calcium 7.9 L Magnesium Total Bilirubin AST ALT Alkaline Phosphatase Total Creatine Kinase CK-MB (CK-2) CK-MB (CK-2) Rel Index Troponin I NT-Pro-B Natriuret Pep Total Protein Albumin Globulin Albumin/Globulin Ratio Lipase Procalcitonin Nasal Screen MRSA (PCR) Chlamy pneumoniae PCR Adenovirus (PCR) B. pertussis DNA (PCR) B.parapertussis DNA PCR Coronavirus OC43 (PCR) Coronavirus HKU1 (PCR) Coronavirus 229E (PCR) SARS-CoV-2 (PCR) Coronavirus NL63 (PCR) Human Metapneumovir PCR Influenza Type A (PCR) Influenza Type B (PCR) M. pneumoniae (PCR) Parainfluenza 1 (PCR) Parainfluenza 2 (PCR) Parainfluenza 3 (PCR) Parainfluenza 4 (PCR) RSV (PCR) Entero/Rhino (PCR) [facility] Medical History COPD (chronic obstructive pulmonary disease) Lung cancer Social History household members: spouse Smoking Status: Former smoker Assessment & Plan Assessment & Plan narrative: 1. Acute hypoxemic respiratory failure secondary to pneumonia -workup notable for consolidation on xray, white count elevated at 14 consistent with pneumonia -on admission requiring 3L of oxygen -given that patient is being treated for lung cancer has concern about immunosuppression and also consider possibility of post-obstructive pneumonia and has chronic malignant pleural effusion at risk of infection -because of this will treat broadly with cefepime, azithromycin -mrsa swab negative -follow blood cultures -check sputum culture and pleural fluid culture -CTA chest negative for PE or infected/loculated effusion 2. Lung cancer -has been on treatment with keytruda which has been held 3. COPD not in exacerbation -ordered PRN albuterol 4. BPH -continue finasteride 5. Type 2 Diabetes -not on insulin -hold metformin -ordered insulin sliding scale CODE: Full Proxy: Tisha Glynn, Dispo: Pending improvement in PNA and O2 requirements.
[2022-10-22] MEDS: CEFEPIME 2 GM in SODIUM CHLORIDE 0.9% 100 ML IV ×2 (09:20→21:44)
--- NOTE | 2022-10-22 10:46 | CM.DANOTE ---
Patient is an 81 yo male who was admitted on 10/21/22 for SOB/Chills. Pt has [facility] and his PCP is not listed. EMR was reviewed. Per MD, pt with hx of COPD and new stage IV lung CA dx from a couple months ago and his Oncologist is at [place] near [place]. Pt has drain placed due to chronic malignant pleural effusion. Pt admitted for acute hypoxic Respiratory failure with pneumonia and getting IV-Abx and down to 2LO2. SW met bedside with pt and explained role and pt confirms he lives in [place] with his and is independent at baseline with ADLs and does not currently have home oxygen at baseline. Pt denies hx of HH or SNF and does not anticipate any needs at discharge. Pt is hopeful for home tomorrow as he confirms he is already starting to feel better but agreeable to stay until medically stable and states likely spouse can transport. Plan: SW to follow for likely d/c home in 1-2 days on oral abx and spouse assist and r/o HH needs. AMY Tran Discharge Planning/Care Management Advanced directive, confirm from FAMILY Start: 10/21/22 21:28 Freq: Q24H Status: Active Protocol: Document 10/21/22 21:28 CS (Rec: 10/21/22 22:46 CS [id number]) Advance Directive, confirm on record Time 20:10 Person contacted Copy received No CM Discharge Assessment Start: 10/22/22 10:45 Freq: Status: Active Protocol: Document 10/22/22 10:45 BF (Rec: 10/22/22 10:46 BF [id number]) Discharge Planning Assessment Assigned Service Support Representative AMY Bazzi DPOA/Assigned Designee Name spouse Tisha Advance Directives? Yes Advance Directives on File No: family brining in History Provided By Patient,Medical Record Has Patient been admitted in last 30 No days? Prior Living Arrangements House Household Members spouse Type of transporation used prior to Drives own vehicle admit Independent with ADL's Yes Is patient alert and oriented? Yes Needs Assistance With Home Chores / Shopping Caregiver for Another No Comment Pending progress and needs Barriers to Discharge No Discharge Plan Home Transportation Arrangement Likely family to transport Additional Comment r/o HH Whiteboard Updated in Patient Room with Yes name and ext. # of Service Support Representative Review Status In Process Please Provide Date Initial DC 04/15/23 Assessment Was Performed Next Review Type Continued Stay Review
--- NOTE | 2022-10-22 13:36 | PC.NURSE ---
drain accessed by and dressing was changed. 200cc serosang out.
--- NOTE | 2022-10-22 13:54 | PC.NURSE ---
1315: assumed care of patient. A/O, continues w/ 1.5 o2 via NC.
[2022-10-22] MEDS: ACETAMINOPHEN 325 MG TABLET 650 MG PO (15:42)
[2022-10-23] VITALS (12 sets, daily range): BP systolic 116–138; BP diastolic 62–69; PULSE 75–126; RESP 16–28; TEMP 36.4–37.6; O2SAT 90–93
[2022-10-23 05:34] LABS: BUN Creatinine Ratio 22.2 (6-22); Blood Urea Nitrogen 14 mg/dL (9-20); Carbon Dioxide 27 mmol/L (22-32); Chloride 102 mmol/L (98-107); Estimated Glomerular Filt Rate > 60 mL/min (>60); Glucose 114 mg/dL (80-110); HEMOLYSIS < 15 (0-50); Potassium 3.9 mmol/L (3.4-5.1); Sodium 135 mmol/L (137-145)
[2022-10-23] MEDS: AZITHROMYCIN 500 MG in DEXTROSE 5% IN WATER 250 ML 250 MG IV (09:01)
[2022-10-23] MEDS: FINASTERIDE 5 MG TABLET PO (09:02)
[2022-10-23] MEDS: APIXABAN 5 MG TABLET PO ×2 (09:02→20:12)
[2022-10-23 09:32] LABS: Procalcitonin 7.57 ng/mL (<0.5)
[2022-10-23] MEDS: ALBUTEROL/IPRATROPIUM 3 ML AMPUL INH (09:58)
[2022-10-23] MEDS: CEFEPIME 2 GM in SODIUM CHLORIDE 0.9% 100 ML IV ×2 (10:33→21:41)
--- NOTE | 2022-10-23 11:29 | CM.DPC ---
DCP/Continued: Reviewed chart. Initially, it was thought that patient would d/c home today. Patient will need home 02 and that has been started. Per provider, patient pending cultures which show growth today so he will be remaining hospitalized. Patient ambulating I in room. P: Home when medically stable. Patient will need home 02 which has already been initiated. NEO
--- NOTE | 2022-10-23 12:34 | PM.PROC.1 ---
Procedures Date/Time Date of procedure: 10/23/22 Time of procedure: 12:00 General Procedure description: Intrapleural tPA Procedure Note Chest tube was taken off of suction. 4 mg of tPA (alteplase) was administered by the physician into the chest tube. This was then flushed with 40mL of normal saline. The chest tube was clamped per physician order to allow for a dwell time of 1 hour. A follow-up chest X-ray is ordered for after completion of dwell time. There were no complications.
--- NOTE | 2022-10-23 12:55 | P.PN_ITS ---
Subjective Subjective Interval history: Patient notes ongoing cough and dyspnea. Pleural fluid culture growing GNB. When attempting to drain Pleurx cath today, it becaame plugged with purulent bloody material. Exam Vital Signs (past 8 hours): - 10/23/22 04:58 10/23/22 07:45 10/23/22 10:07 Temperature 97.5 F L 98.1 F Pulse Rate 80 75 Respiratory Rate 16 20 Blood Pressure 118/64 122/69 Pulse Oximetry 91 92 92 Oxygen Delivery Method Room Air Oxygen Flow Rate 2 2 10/23/22 07:00 10/23/22 07:00 Temperature Pulse Rate Respiratory Rate Blood Pressure Pulse Oximetry 92 Oxygen Delivery Method Nasal Cannula Nasal Cannula Oxygen Flow Rate 2 Oxygen Delivery Method Room Air Oxygen Flow Rate 2 Narrative Exam Narrative: GEN: NAD HEENT: moist mucous membranes, PERRL NECK: trachea midline, no JVD PULM: rhonchorous breath sounds, left sided pigtail in place draining bloody fluid, right sided port in place CV: regular rate and rhythm, no murmurs ABD: soft, nontender, nondistended, no organomegaly, normal bowel sounds EXT: warm and well perfused with no edema NEURO: awake, alert, oriented, no focal deficits Objective Labs 10/22/22 04:50 10/23/22 05:05 Labs: Laboratory Results - last 24 hr 10/23/22 10/23/22 05:05 05:05 Sodium 135 L Potassium 3.9 Chloride 102 Carbon Dioxide 27 BUN 14 Creatinine 0.63 L Estimated GFR > 60 BUN/Creatinine Ratio 22.2 H Glucose 114 H Calcium 8.0 L Procalcitonin 7.57 H [facility] Medical History COPD (chronic obstructive pulmonary disease) Lung cancer Social History household members: spouse Smoking Status: Former smoker Assessment & Plan Assessment & Plan narrative: 1. Acute hypoxemic respiratory failure secondary to pneumonia with possible empyema -workup notable for consolidation on xray, white count elevated at 14 consistent with pneumonia -on admission requiring 3L of oxygen, now at 2L and home O2 qualified per RT -given that patient is being treated for lung cancer has concern about immunosuppression and also consider possibility of post-obstructive pneumonia and has chronic malignant pleural effusion at risk of infection -because of this will treat broadly with cefepime, azithromycin, flagyl added to cover anaerobes if empyema present -mrsa swab negative -blood cultures NG at 24 hours -pleural fluid culture growing GNB, concern for empyema given clogging of pleurx cath while draining on 10/23 -Gen surg recommended intra-pleural tPA and ran this by pulm/ICU doc who agreed to use tPA and that is safe while on eliquis -CTA chest negative for PE or infected/loculated effusion 2. Lung cancer -has been on treatment with keytruda which has been held recently due to possible pneumonia 3 weeks ago as outpatient 3. COPD not in exacerbation -ordered PRN albuterol 4. BPH -continue finasteride 5. Type 2 Diabetes -not on insulin -hold metformin -ordered insulin sliding scale CODE: Full Proxy: Tisha Glynn, Dispo: Pending improvement in PNA and O2 requirements.
[2022-10-23] MEDS: SODIUM CHLORIDE 0.9% IV (14:41)
[2022-10-23] MEDS: ALTEPLASE IV (14:41)
--- NOTE | 2022-10-23 14:43 | DI.RAD.S_ITS ---
PROCEDURE: XR CHEST 1V INDICATIONS: left lateral chest drain, placement TECHNIQUE: One view of the chest was acquired. COMPARISON: [facility], CT, CT ANGIO CHEST PE PROTOCOL, 10/21/2022, 23:20. [facility], CR, XR CHEST 1V, 10/21/2022, 16:44. FINDINGS: Surgical changes and devices: A left inferior pleural drain can be seen. There is a stable right-sided chest port, with the tip overlying the right atrium. Lungs and pleura: On this semiupright portable chest examination, no large pneumothorax can be seen. There is blunting of the left costophrenic angle. Mild areas of patchy pulmonary opacity are seen, which are better demonstrated on the recent prior CT examination and are worst within the right mid lung. Mediastinum: Mediastinal contours appear normal. Heart size is normal. Atherosclerotic calcification of the aortic arch is noted. Bones and chest wall: No suspicious bony lesions. Age-appropriate bony degenerative changes are seen. Mild dextroconvex scoliotic curvature is seen. Overlying soft tissues appear unremarkable. IMPRESSION: Left inferior pleural drain seen, with a small left-sided pleural effusion. Scattered areas of pulmonary infiltrates are seen, which are worst involving the right mid lung. These of better demonstrated by CT. Dictated by: Mitch Jose M.D. on 10/23/2022 at 15:44 Approved by: Mitch Jose M.D. on 10/23/2022 at 15:45
[2022-10-23] MEDS: metroNIDAZOLE 500 MG/100 ML PIGGYBACK 100 MG IV ×2 (14:55→20:12)
[2022-10-23] MEDS: ACETAMINOPHEN 325 MG TABLET 650 MG PO ×2 (15:56→20:12)
[2022-10-24] VITALS (11 sets, daily range): BP systolic 107–141; BP diastolic 53–73; PULSE 75–90; RESP 16–31; TEMP 36.3–37.1; O2SAT 92–97
[2022-10-24] MEDS: ALBUTEROL/IPRATROPIUM 3 ML AMPUL INH (04:20)
[2022-10-24] MEDS: metroNIDAZOLE 500 MG/100 ML PIGGYBACK 100 MG IV (05:00)
[2022-10-24 05:10] LABS: Add Manual Diff / Slide Review NO; Basophils Absolute Auto 200 /uL (0-100); Basophils Percent Auto 1.3 % (0-2); Eosinophils Absolute Auto 0 /uL (0-450); Eosinophils Percent Auto 0.2 % (2-4); Hematocrit 34.7 % (41-53); Hemoglobin 11.4 g/dL (13.5-17.5); Lymphocytes Absolute Auto 1100 /uL (1100-4500); Lymphocytes Percent Auto 7.1 % (25-40); Mean Corpuscular HGB Conc 32.9 % (30-36); Mean Corpuscular Volume 88.1 fL (80-100); Monocytes Absolute Auto 1800 /uL (0-900); Monocytes Percent Auto 11.6 % (3-14); Neutrophils Absolute Auto 12500 /uL (1500-7000); Neutrophils Percent Auto 79.8 % (50-75); Platelet Count 355 X10^3/uL (150-400); Red Blood Cell Count 3.94 X10^6/uL (4.5-5.9); Red Cell Distribution Width 15.4 % (11.6-14.8); White Blood Cell Count 15.6 X10^3/uL (4.5-11.0)
[2022-10-24 05:20] LABS: BUN Creatinine Ratio 20.8 (6-22); Blood Urea Nitrogen 15 mg/dL (9-20); Calcium 8.2 mg/dL (8.4-10.2); Carbon Dioxide 27 mmol/L (22-32); Chloride 100 mmol/L (98-107); Estimated Glomerular Filt Rate > 60 mL/min (>60); Glucose 141 mg/dL (80-110); HEMOLYSIS < 15 (0-50); Potassium 3.6 mmol/L (3.4-5.1); Sodium 134 mmol/L (137-145)
[2022-10-24] MEDS: SODIUM CHLORIDE 0.9% 250 ML 21 ML IV ×2 (06:13→19:01)
[2022-10-24] MEDS: AZITHROMYCIN 500 MG in DEXTROSE 5% IN WATER 250 ML 250 MG IV (06:53)
--- NOTE | 2022-10-24 07:40 | P.PN_ITS ---
Subjective Subjective Interval history: A 35 minute discussion was had with the patient and daughter about goals of care, given I spoke with ID who recommended decortication by VATS for source control of empyema and then spoke with patient's [facility] oncologist who stated there is no further treatment for the patient's cancer available. Patient understood he options are now very limited and he decided to pursue hospice care at home. 's questions were answered as well. Patient notes today he is having more pain with breathing and dyspnea when trying to walk to restroom. Exam Vital Signs (past 8 hours): - 10/24/22 04:00 Temperature 98.1 F Pulse Rate 90 Respiratory Rate 31 H Blood Pressure 141/66 H Pulse Oximetry 97 Oxygen Flow Rate 2 Oxygen Delivery Method Nasal Cannula Oxygen Flow Rate 2 Narrative Exam Narrative: GEN: NAD, appears uncomfortable HEENT: moist mucous membranes, PERRL NECK: trachea midline, no JVD PULM: dimished breath sounds on left especially at base, left sided pigtail in place draining bloody fluid, right sided port in place CV: regular rate and rhythm, no murmurs ABD: soft, nontender, nondistended, no organomegaly, normal bowel sounds EXT: warm and well perfused with no edema, post op hip dressing in place NEURO: awake, alert, oriented to place, no focal deficits Objective Labs 10/24/22 04:40 10/24/22 04:40 Labs: Laboratory Results - last 24 hr 10/23/22 10/24/22 10/24/22 05:05 04:40 04:40 WBC 15.6 H RBC 3.94 L Hgb 11.4 L Hct 34.7 L MCV 88.1 MCH 29.0 MCHC 32.9 RDW 15.4 H Plt Count 355 Neut % (Auto) 79.8 H Lymph % (Auto) 7.1 L [place] % (Auto) 11.6 Eos % (Auto) 0.2 L Baso % (Auto) 1.3 Neut # (Auto) 66806 H Lymph # (Auto) 1100 [place] # (Auto) 1800 H Eos # (Auto) 0 Baso # (Auto) 200 H Sodium 134 L Potassium 3.6 Chloride 100 Carbon Dioxide 27 BUN 15 Creatinine 0.72 Estimated GFR > 60 BUN/Creatinine Ratio 20.8 Glucose 141 H Calcium 8.2 L Procalcitonin 7.57 H PFSH Medical History COPD (chronic obstructive pulmonary disease) Lung cancer Social History household members: spouse Smoking Status: Former smoker Assessment & Plan Assessment & Plan narrative: 1. Acute hypoxemic respiratory failure secondary to stage 4 lung cancer, pneumonia and left-sided empyema -workup notable for consolidation on xray, white count elevated at 14 consistent with pneumonia -on admission requiring 3L of oxygen, now at 2L and home O2 qualified per RT -CTA chest negative for PE, showed bilateral PNA -given that patient is being treated for lung cancer has concern about immunosuppression and also consider possibility of post-obstructive pneumonia and has chronic malignant pleural effusion at risk of infection -because of this will treat broadly with cefepime, azithromycin, flagyl added to cover anaerobes if empyema present -mrsa swab negative -blood cultures NG at 24 hours -pleural fluid culture growing acinetobacter, concern for empyema given clogging of pleurx cath while draining on 10/23 -Gen surg recommended intra-pleural tPA and ran this by pulm/ICU doc who agreed to use tPA and that is safe while on eliquis -spoke with ID who recommended meropenem and transfer for decortication if within GOC -spoke with patient's oncologist Dr. Riddle at [facility] who recommend hospice care given no further chemo treatments available -patient elected for hospice and [employer] ANA[employer] arranging this, will need home O2 and hospital bed delivered 2. Lung cancer with chronic malignant pleural effusion, now empyema -has been on treatment with keytruda which was stopped in Jul 2022 due to pulmonary pneumonitis -no further treatment available per patient's oncologist and hospice recommended 3. COPD not in exacerbation -ordered PRN albuterol 4. BPH -continue finasteride 5. Type 2 Diabetes -not on insulin -hold metformin -ordered insulin sliding scale CODE: Full Proxy: Tisha Glynn, Dispo: Pending hospice referral.
[2022-10-24] MEDS: CEFEPIME 2 GM in SODIUM CHLORIDE 0.9% 100 ML IV (08:28)
[2022-10-24] MEDS: INSULIN LISPRO 100 UNIT/ML 3ML VIAL SUBCUT (08:28)
[2022-10-24] MEDS: APIXABAN 5 MG TABLET PO ×2 (08:30→20:08)
[2022-10-24] MEDS: FINASTERIDE 5 MG TABLET PO (08:30)
[2022-10-24] MEDS: ACETAMINOPHEN 325 MG TABLET 650 MG PO (09:54)
[2022-10-24] MEDS: SODIUM CHLORIDE 0.9% FLUSH 10 ML IV (10:01)
[2022-10-24] MEDS: MEROPENEM 500 MG in SODIUM CHLORIDE 0.9% 100 ML 200 MG IV ×3 (13:07→23:26)
[2022-10-24] MEDS: MORPHINE 2 MG/ML INJ IV (13:09)
--- NOTE | 2022-10-24 13:43 | CM.DPC ---
DCP Hospice Planning Per MD, pt's drain has an infection and per consult with ID MD this infection would be very difficult to treat and would also need surgical intervention. MD consulted with pt's Oncologist who confirms there is no further tx for pt and recommends Hospice/Comfort Care. MD had lengthy discussion bedside with pt and spouse present with update on above and Goals of Care discussion and decision made for Hospice at home and MD will also provide this information to family members via speaker phone later today bedside. BRIANA called [facility] and confirmed they have availability this week, starting by Monday for sure, and SW requested Hospice Info Visit today and [facility] kindly will make it happen and confirmed she received the faxed referral. SW met bedside with pt and spouse and explained role again and discussed Hospice referral and Info visit and they confirm they are agreeable with referral and info visit today. SW discussed DME delivery and transport home as pt's home entrance is different and has an elevator to enter through the garage and then they are on the main floor where pt wants to stay. Pt will need oxygen, wheelchair, hospital bed for delivery through Hospice. SW discussed options that cabulance cannot get pt inside the home, BLS transport stretcher likely would not fit in the elevator or the stairs as they are steep with two levels of stairs with sharp angle and pt and spouse preference is home via POV and w/c to enter the home and then they feel they can manage pt once inside and will request Dtr to drive up for assist (about 2 hours away) at day of discharge. Plan: SW to follow closely in the AM with [facility] to confirm Info Visit completed and if DME (primarily w/c and oxygen, but also hospital bed but not as urgent) can be delivered Tues for them to open pt to service on Mon. If DME delivered, pt could likely d/c Tues via spouse POV. AMY Tran
[2022-10-25] MEDS: MEROPENEM 500 MG in SODIUM CHLORIDE 0.9% 100 ML 200 MG IV (04:46)
[2022-10-25 07:40] VITALS: O2SAT 93
[2022-10-25 09:04] VITALS: BP 117/54; PULSE 89; RESP 17; TEMP 37.1; O2SAT 95
[2022-10-25 09:19] VITALS: O2SAT 96
--- NOTE | 2022-10-25 11:28 | CM.DPC ---
DCP Hospice Planning: Per [facility] at [facility], Hospice Info Visit completed and pt/spouse agreeable to Hospice consents and DME (oxygen, transport w/c, hospital bed, bsc) ordered for delivery today 10/25/22 and they can open pt to service tomorrow Mon10/26/22 between [id number]. BRIANA updated MD who then met bedside with pt and spouse and discussed d/c home and plan is to d/c home in the morning via spouse POV as she will have the transport w/c to utilize at d/c and oxygen set up at home and they will d/c to be home prior to 1000. SW spoke to Hospice and RT and new RT order to assess for home O2 placed as pt will need concentrator for oxy-mask at 6LO2 at d/c set up and then Hospice will provide the ongoing oxygen. Plan: SW to follow for plan of d/c in the AM before 1000 via spouse POV and Hospice to open [phone] and SW to fax d/c summary at discharge. Rose Mary Quiroz MSW
[2022-10-25] MEDS: FINASTERIDE 5 MG TABLET PO (11:32)
[2022-10-25] MEDS: SENNOSIDES 8.6 MG TABLET PO (11:32)
[2022-10-25] MEDS: MEROPENEM 1 GM in SODIUM CHLORIDE 0.9% 100 ML IV ×2 (11:33→18:22)
[2022-10-25] MEDS: APIXABAN 5 MG TABLET PO ×2 (11:33→20:14)
--- NOTE | 2022-10-25 12:53 | PM.PN.1 ---
Subjective Subjective Interval history: Patient notes ongoing cough and dyspnea today. He is wishing to discuss physician assisted suicide, did discuss that is a prolonged process, but if he would like to persue this to discuss with hospice when he gets home. Plan is to discharge home tomorrow, as equipement is getting delivered this afternoon. Will discharge home with antibiotics, continue meropenem until discharge based on phone recommendations from ID yesterday. Exam Vital Signs (past 8 hours): - 10/25/22 09:04 10/25/22 09:19 Temperature 98.8 F Pulse Rate 89 Respiratory Rate 17 Blood Pressure 117/54 L Pulse Oximetry 95 96 Oxygen Delivery Method Oximask Oxygen Flow Rate 6 6 Oxygen Delivery Method Oximask Oxygen Flow Rate 6 Narrative Exam Narrative: GEN: NAD HEENT: moist mucous membranes, PERRL NECK: trachea midline, no JVD PULM: dimished breath sounds on left especially at base, left sided pigtail in place draining bloody fluid, right sided port in place CV: regular rate and rhythm, no murmurs ABD: soft, nontender, nondistended, no organomegaly, normal bowel sounds EXT: warm and well perfused with no edema, post op hip dressing in place NEURO: awake, alert, oriented to place, no focal deficits Objective Labs 10/24/22 04:40 10/24/22 04:40 [facility] Medical History COPD (chronic obstructive pulmonary disease) Lung cancer Social History household members: spouse Smoking Status: Former smoker Assessment & Plan Assessment & Plan narrative: 1. Acute hypoxemic respiratory failure secondary to stage 4 lung cancer, pneumonia and left-sided empyema secondary to acenetobacter -workup notable for consolidation on xray, white count elevated at 14 consistent with pneumonia -on admission requiring 3L of oxygen, now at 2L and home O2 qualified per RT -CTA chest negative for PE, showed bilateral PNA -given that patient is being treated for lung cancer has concern about immunosuppression and also consider possibility of post-obstructive pneumonia and has chronic malignant pleural effusion at risk of infection -because of this treated broadly initially with cefepime, azithromycin, flagyl added to cover anaerobes if empyema present initially. -blood cultures NG at 24 hours -pleural fluid culture growing acinetobacter, concern for empyema given clogging of pleurx cath while draining on 10/23 -team spoke with ID who recommended meropenem and transfer for decortication if within GOC. Patient does not wish for decortication, but would like to continue antibiotics and will continue to drain fluid with pleurex catheter. -team spoke with patient's oncologist Dr. Riddle at [facility] who recommend hospice care given no further chemo treatments available -patient elected for hospice and [employer] arranging this, currently planning for discharge home tomorrow. 2. Lung cancer with chronic malignant pleural effusion, now empyema -has been on treatment with keytruda which was stopped in Jul 2022 due to pulmonary pneumonitis -no further treatment available per patient's oncologist and hospice recommended 3. COPD not in exacerbation -ordered PRN albuterol 4. BPH -continue finasteride 5. Type 2 Diabetes -will discontinue medications and fingersticks today given goals of care, patient does not wish to continue checking his sugars. CODE: Full Proxy: Tisha Glynn, Dispo: home with hospice, plan for tomorrow AM.
[2022-10-25 16:28] VITALS: BP 132/69; PULSE 87; RESP 17; TEMP 36.4; O2SAT 96
[2022-10-25 19:00] VITALS: O2SAT 95
[2022-10-25 23:27] VITALS: O2SAT 96
[2022-10-26 02:00] VITALS: BP 129/69; PULSE 87; RESP 15; TEMP 36.9; O2SAT 94
[2022-10-26] MEDS: MEROPENEM 1 GM in SODIUM CHLORIDE 0.9% 100 ML IV (03:04)
[2022-10-26 07:50] VITALS: O2SAT 94
--- NOTE | 2022-10-26 08:18 | PM.DS.1 ---
History of Present Illness History of Present Illness Date Patient Seen: 10/26/22 Time Patient Seen: 08:18 Chief complaint: SOB, Chills Narrative: Per admitting provider, Mr. Thompson is an 81M with PMH COPD, former smoker, lung cancer who presents to the hospital with left sided pleuritic chest pain, shortness of breath, and chills/rigors. He was diagnosed with stage 4 lung cancer a few months ago. He gets his medical care at [facility]. He was having issues with recurrent malignant effusion so has left sided pleural drain in place. Over the last day he has noted slightly more draining from the catheter. Otherwise the fluid looks similar to his baseline. He is taking eliquis, but he is not clear for what, he does not think he has blood clots or a history of arrhythmia. His last dose of Keytruda was approximately 8-9 weeks ago, and he has not had additional doses because of concern that he has developed pneumonia while on this, or because there is concern for a reaction. He is not aware if his treatment is palliative, or if his cancer is responding to treatment. In the ED workup was done, vitals notable for temp 99.2, heart rate 100s, respiratory rate 30s, blood pressure 150s/80s, sats 89% on room air. He was placed on oxygen and felt somewhat improved. Labs reviewed by me and notable for WBC 14.9, hgb 12.3, plts 365. Creatinine 0.70. Inr 1.5. Troponin negative. Lactate 1.9. BNP 82. Chest xray reviewed by me and showed bilateral infiltrates and possible small left pleural effusion. He was ordered for antibiotic and admitted for further treatment. Discharge Providers Provider Date of admission: 10/21/22 19:31 Discharge Date: 10/26/22 Primary care physician: Doctor Antonio MD Consults: 10/24/22 12:15 Consult to Discharge Planning Routine Comment: Consult to Hospice Referral Urgent Comment: Discharge provider: Jaspal Rees DO Summary Hospital Course Discharge Diagnosis: 1. Acute hypoxemic respiratory failure secondary to stage 4 lung cancer, pneumonia and left-sided empyema secondary to acenetobacter 2. Lung cancer with chronic malignant pleural effusion, now empyema 3. COPD not in exacerbation 4. BPH 5. Type 2 Diabetes Hospital Course: This is an 81 year old male admitted with hypoxic respiratory failure due to stage 4 lung cancer with left sided empyema secondary to acenetobacter. He was initially treated broadly with cefepime, azithro, and flagyl empirically. Once cultures finalized team discussed with ID provider, whom recommended meropenem and transfer for decortication if within goals of care. Patient did not wish for transfer, and will continue drainage with pleurex catheter at home. Discussed as well with patient's oncologist whom stated no further chemo treatments are available for the patient. After goals of care discussion again, patient elected for discharge home with home hospice. He was also interested in persuing assisted suicide available in [place], I advised him to discuss this with hospice once hospice opens. Patient also opted to stop treatment for his diabetes including fingerstick checks. Once equipment including oxygen was delivered he was discharged home with hospice. He was discharged on levofloxacin for an additional 10 days at discharge to possibly treat is underlying empyema, along with continued drainage. His pleurex catheter did become clogged, but was able to be unclogged with tpa. Time Spent with Patient Time spent: Greater than 30 minutes Exam Vital Signs (past 8 hours): - 10/26/22 02:00 Temperature 98.5 F Pulse Rate 87 Respiratory Rate 15 Blood Pressure 129/69 Pulse Oximetry 94 Oxygen Flow Rate 2 Oxygen Delivery Method Nasal Cannula Oxygen Flow Rate 2 Narrative Exam Narrative: GEN: NAD HEENT: moist mucous membranes, PERRL NECK: trachea midline, no JVD PULM: dimished breath sounds on left especially at base, left sided pigtail in place draining bloody fluid, right sided port in place CV: regular rate and rhythm, no murmurs ABD: soft, nontender, nondistended, no organomegaly, normal bowel sounds EXT: warm and well perfused with no edema, post op hip dressing in place NEURO: awake, alert, oriented to place, no focal deficits Objective Labs 10/24/22 04:40 10/24/22 04:40 [facility] Medical History (Updated 10/25/22 @ 13:20 by Мария Trimble RN) Benign prostatic hyperplasia COPD (chronic obstructive pulmonary disease) Former cigarette smoker Lung cancer Malignant pleural effusion Port-A-Cath in place Type 2 diabetes mellitus Social History household members: spouse Smoking Status: Former smoker Discharge Plan Discharge Plan Patient Disposition: Hospice - Home Provider Discharge Comment: You were admitted to the hospital for worsening shortness of breath. You were found to have a bacterial infection in your lung. Continue to drain lung with pleurex catheter at home, continue antibiotics for another 10 days to treat the bacteria that grew from cultures. You elected for discharge home with hospice. Discharge orders & Medications Prescriptions: New levofloxacin 750 mg tablet 750 mg PO DAILY 10 Days Qty: 10 0RF Continued folic acid 1 mg tablet 1 mg PO DAILY aspirin 81 mg Capsule 81 mg PO Q OTHER DAY metformin 500 mg tablet 500 mg PO BID Patient Comments: take 1 tablet by mouth twice a day ondansetron HCl 8 mg Tablet 8 mg PO Q8H PRN (Reason: Nausea) albuterol sulfate 90 mcg/actuation Hfa Aerosol Inhaler 2 inh INHALATION QID PRN (Reason: sob) finasteride 5 mg tablet 5 mg PO DAILY Patient Comments: TAKE 1 TABLET BY MOUTH ONCE DAILY Eliquis 5 mg tablet 5 mg PO BID Patient Comments: TAKE 1 TABLET BY MOUTH TWICE DAILY fluticasone furoate-vilanterol [Breo Ellipta] 100-25 mcg/dose blister with device 1 ea INHALATION DAILY Patient Comments: INHALE 1 PUFF INTO THE LUNGS DAILY ergocalciferol (vitamin D2) 50 mcg (2,000 unit) Capsule 50 mcg PO DAILY Discontinued dexamethasone 4 mg tablet 4 mg PO DIRECTED Patient Comments: TAKE 1 TABLET BY MOUTH TWICE DAILY DAY BEFORE AND DAY AFTER CHEMOTHERAPY. Follow up/Referrals: Doctor Antonio, [Primary Care Provider] - Diet/Activity/Treatments Diet: Diet as Tolerated Activity: As tolerated Visit Report/Discharge Packet Instructions: How to Use an Incentive Spirometer, Home Oxygen Therapy, DI for Pneumonia -- Adult, DI for Oxygen Therapy -- Adult, How to Measure Oxygen Saturation via Pulse Oximetry, How to Perform Oxygen Therapy via Cannula, How to Perform Oxygen Therapy via Mask, How to Use a Nebulizer, DI for Hypoxia, Traveling When You Need Oxygen Therapy Stand Alone Forms: Patient Portal/API, Stroke Signs & Symptoms Discharge Data Primary Care Provider: Doctor Antonio Discharges patient from system. Discharge Date/Time: 10/26/22 10:00
[2022-10-26] MEDS: APIXABAN 5 MG TABLET PO (09:00)
[2022-10-26] MEDS: FINASTERIDE 5 MG TABLET PO (09:00)
[2022-10-26] MEDS: MORPHINE IR 15 MG TABLET 30 MG PO (09:46)
[2022-10-26 10:10] VITALS: O2SAT 94
--- NOTE | 2022-10-26 10:28 | CM.DPC ---
DCP Discharge Home Hospice Per MD, pt is medically stable to d/c home today with Hospice. BRIANA spoke to Ally at [facility] and confirmed DME was delivered yesterday and their RN can do start of care in the home today 10/26 between [id number]. SW spoke to pt's spouse who is requesting cabulance transport, and aware she would need to pay privately and to use the transport w/c that was delivered yesterday so that pt can get home and remain in the same w/c to then utilize their elevator into the home. BRIANA called [facility] cabulance and confirmed they can transport at 0930 with pt's transport w/c and aware he is on oxygen to home and SW provided spouse contact information to get payment now. SW updated RN and faxed d/c summary to [facility] and spouse and Dtr are bedside and Dtr here to assist with getting settled in at home. Plan: Patient to d/c home via [facility] private pay cabulance at 0930 to home with [facility] to open today at 1000. AMY Tran
--- NOTE | 2022-10-26 13:40 | PC.NURSE ---
Discharge: Pt feels ready to d/c to home. Portacath removed per protocol, brisk blood return, flushed with heparin. Bandaid applied. Transfer O2 tank here and RT showed patient how to use it. Reviewed oxygen therapy. Reviewed d/c packet. Questions answered, pt d/c to home via auto w/spouse.
== END 2022-10-26 10:00 | disposition hospice, home (50) | DRG 177 ==
LOC: ED 19:28 → AC 19:31
PROVIDERS: Student in an Organized Health Care Education/Training Program; Admitting Provider Internal Medicine; Emergency Provider Emergency Medicine; Referring Provider Emergency Medicine; Visit Provider Internal Medicine
DX: J86.9 Pyothorax without fistula (principal); J18.9 Pneumonia, unspecified organism; J96.01 Acute respiratory failure with hypoxia; J91.0 Malignant pleural effusion; C34.92 Malignant neoplasm of unspecified part of left bronchus or lung; J44.9 Chronic obstructive pulmonary disease, unspecified; N40.0 Benign prostatic hyperplasia without lower urinary tract symptoms; B96.89 Other specified bacterial agents as the cause of diseases classified elsewhere; E11.9 Type 2 diabetes mellitus without complications; Z79.84 Long term (current) use of oral hypoglycemic drugs; Z87.891 Personal history of nicotine dependence; Z20.822 Contact with and (suspected) exposure to COVID-19
CPT/HCPCS: 36415; 36600; 71045; 71275; 80048; 80053; 82550; 82805; 82962; 83605; 83690; 83735; 83880; 84145; 84484; 85025; 85610; 85730; 87040; 87070; 87075; 87077; 87186; 87205; 87633; 87797; 93005; 93010; 94618; 94640; 94760; 94762; 96365; 96367; 99285; J0692; J0696; J1642; J1815; J2185; J2270; J2997; Q9967

== ENCOUNTER → 2023-01-17 08:26 | Outpatient (CLI) | payer MEDICARE, OTHER, SELFPAY ==
[2022-10-21 21:11] VITALS: BMI 27.8
--- NOTE | 2023-01-17 08:32 | DI.NM.S_ITS ---
PROCEDURE: [place] BONE SCAN WHOLE BODY RADIOPHARMACEUTICAL: 19.5 mCi Tc-99m MDP IV. INDICATIONS: left lung cancer TECHNIQUE: Delayed whole-body scintigrams were obtained approximately 3-4 hours after intravenous injection of radiotracer. Anterior and posterior views were acquired from vertex to feet. Additional left and right oblique views of the chest were obtained. COMPARISON: [facility], [place], CT CHEST ABD PEL W CON, 01/17/2023, 10:36. FINDINGS: There is normal radiotracer excretion in the urinary system. Scattered degenerative changes are seen in the upper and lower extremities, and also mild degenerative changes seen in the spine. Tiny mild focus is uptake is seen in the left mid femur. Mild additional region of uptake projects over the upper lumbar spine on frontal view. IMPRESSION: Tiny indeterminate focus of uptake in the left mid femur. No definite osteoblastic lesions. Bone scan is insensitive for lytic lesions. Recommend continued follow-up. Dictated by: Nirav Newton M.D. on 01/17/2023 at 15:26 Approved by: Nirav Newton M.D. on 01/17/2023 at 15:31
--- NOTE | 2023-01-17 08:32 | DI.MRI.S_ITS ---
PROCEDURE: MR HEAD/BRAIN WO/W CON INDICATIONS: stage IV lung cancer TECHNIQUE: Noncontrast axial T1 spin echo, axial T2 fast spin echo, sagittal and axial FLAIR, coronal T2 fast spin echo, axial gradient echo, axial diffusion and ADC through the brain. After the administration of contrast, axial and coronal and sagittal 3D VIBE or T1 spin echo with fat saturation through the brain. COMPARISON: None. FINDINGS: Image quality: Excellent. CSF Spaces: Basal cisterns are patent. No extra-axial fluid collections. The ventricles and sulci are prominent, consistent with The ventricles and sulci are prominent, consistent with moderate global volume loss. global volume loss. Brain: No midline shift. No intracranial bleeds or masses. No abnormal intracranial enhancement. There are T2/FLAIR hyperintensities within the deep and periventricular white matter, nonspecific and likely representing chronic microvascular ischemic change. The brainstem appears normal. Diffusion-weighted images demonstrate no acute ischemic insults. No chronic ischemic insults. Normal intravascular flow voids are present. Skull and face: Calvarial marrow is normal in signal. Orbits appear normal. Sinuses: Scattered paranasal sinus mucosal disease. The mastoids appear clear. IMPRESSION: No evidence of intracranial metastatic disease. No acute intracranial abnormalities. Dictated by: Bradley Caldwell M.D. on 01/17/2023 at 14:02 Approved by: Bradley Caldwell M.D. on 01/17/2023 at 14:09
--- NOTE | 2023-01-17 08:32 | DI.CT.S_ITS ---
PROCEDURE: CT CHEST ABD PEL W CON INDICATIONS: left lung cancer TECHNIQUE: After the administration of oral and intravenous contrast, axial sections acquired from the supraclavicular neck to the pubic symphysis. Coronal and sagittal reformats were performed. For radiation dose reduction, the following was used: automated exposure control, adjustment of mA and/or kV according to patient size. COMPARISON: [place], [place], [place] BONE SCAN WHOLE BODY, 01/17/2023, 11:01. FINDINGS: Image quality: Excellent. CHEST: Lower Neck: No enlarged lymph nodes. Thyroid: Within normal limits. Axillae: No enlarged lymph nodes. Chest Wall: Right-sided port with the catheter tip at the cavoatrial junction. Lungs and Airways: Nodular opacity or pulmonary nodule in the left upper lobe measuring 1.6 x 1.3 cm, (2/107), previously 1.7 x 1.4 cm on 10/21/2022. Moderate emphysematous change. Mild opacity at the lower lobes, decreased. The previously seen patchy opacity in the right middle lobe and right upper lobe is resolved. Central airways are clear. Pleura: Small left pleural effusion. Left basilar pleural drain in a similar location. No pneumothorax. Heart: Heart size is normal. Three-vessel coronary artery calcifications. No pericardial effusion. Thoracic Vessels: The aorta and pulmonary arteries demonstrate normal size. No central pulmonary embolism. Mediastinum and Negar: No enlarged lymph nodes. Esophagus: No wall thickening. No hiatal hernia. ABDOMEN: Liver: No focal lesion. Gallbladder: Within normal limits. Biliary ducts: Unremarkable. Pancreas: Focal fat near the head of the pancreas Spleen: No splenomegaly. Adrenal Glands: No nodule. Kidneys and Ureters: No hydronephrosis. Nonobstructing right kidney stone measuring 1.3 cm. Small benign appearing right renal cyst. Large benign left renal cyst measuring 7.3 cm. Stomach and Bowel: Stomach, small bowel loops, and colon are unremarkable. Diverticulosis. Normal appendix. Peritoneum: No abnormal intraperitoneal fluid. No free air. Ventral Wall: No hernia. Abdominal Nodes: No retroperitoneal or mesenteric adenopathy by size criteria. Vessels: Aorta and inferior vena cava are normal in size. Circumferential calcified atherosclerotic plaque. PELVIS: Pelvic Organs: Prostatomegaly. Bladder: Unremarkable. Pelvic Nodes: No enlarged lymph nodes. Miscellaneous: No definite inguinal hernia. Bilateral inguinal clips. Bones: No aggressive appearing lesion. IMPRESSION: 1. Left upper lobe nodular opacity or pulmonary nodule measuring 1.6 cm, not significantly changed since October 2022. Recommend follow-up CT chest in 6 months. PET/CT may be helpful for further evaluation. 2. Trace left pleural effusion. Left basilar pleural drain. 3. No enlarged lymph nodes. 4. No metastatic disease identified in the abdomen or pelvis. No free fluid. 5. Marked prostatomegaly. 6. No suspicious osseous lesion identified. Dictated by: Surya Collado M.D. on 01/17/2023 at 13:12 Approved by: Surya Collado M.D. on 01/17/2023 at 13:34
== END ==
PROVIDERS: Referring Provider Internal Medicine Hematology & Oncology; Visit Provider Internal Medicine Hematology & Oncology
DX: C34.12 Malignant neoplasm of upper lobe, left bronchus or lung (principal); N40.0 Benign prostatic hyperplasia without lower urinary tract symptoms
CPT/HCPCS: 70553; 71260; 74177; 78306; A9503; A9579

== ENCOUNTER 2024-02-14 16:50 | Emergency (ER) | payer MEDICARE, OTHER, SELFPAY ==
[2022-10-21 21:11] VITALS: BMI 27.8
[2024-02-14 16:54] VITALS: BP 158/77; PULSE 73; RESP 20; TEMP 36.7; O2SAT 95; BMI 27.0
== END 2024-02-14 17:38 | disposition left against medical advice (07) ==
PROVIDERS: Emergency Provider Emergency Medicine
DX: U07.1 COVID-19 (principal)
CPT/HCPCS: 99281

== ENCOUNTER 2024-05-26 16:34 | Emergency (ER) | payer MEDICARE, OTHER, SELFPAY ==
[2022-10-21 21:11] VITALS: BMI 27.8
[2024-05-26 16:36] VITALS: BP 184/98; PULSE 79; RESP 17; TEMP 36.8; O2SAT 93; BMI 26.1
--- NOTE | 2024-05-26 16:51 | ED.BACK ---
HPI - Back Pain/Injury <Jet Adams, DO - Last Filed: 06/05/24 17:59> General Chief Complaint: Back Pain/Injury Stated Complaint: kidney stones Time Seen by Provider: 05/26/24 16:42 Source: patient Mode of arrival: Ambulatory Limitations: no limitations History of Present Illness HPI Narrative: Patient is an 83-year-old male. Has a history of kidney stones. He states his last stone was approximately 10 years ago. He was never needed surgery to remove the stones. Has always passed them on his own. Approximately 30 minutes ago he would pain in his left flank and left-sided abdomen that are is very consistent with his prior history of stones. No fevers. A couple days ago he did have some blood in his urine but he was on anticoagulation. He was scheduled to have a urologic CT scan performed tomorrow he was an outpatient. He did have some urinary frequency and hesitancy today. Related Data Home Medications Medication Instructions Recorded Confirmed albuterol sulfate 90 mcg/actuation 2 inh inhalation QID PRN sob 10/21/22 02/14/24 aerosol inhaler apixaban 5 mg tablet (Eliquis) 5 mg PO BID 10/21/22 02/14/24 ergocalciferol (vitamin D2) 50 mcg 50 mcg PO DAILY 10/21/22 02/14/24 (2,000 unit) capsule fluticasone furoate 100 1 ea inhalation DAILY 10/21/22 02/14/24 mcg-vilanterol 25 mcg/dose inhalation powder (Breo Ellipta) metformin 500 mg tablet 500 mg PO BID 10/21/22 02/14/24 ondansetron HCl 8 mg tablet 8 mg PO Q8H PRN Nausea 10/21/22 02/14/24 dexamethasone 4 mg tablet 4 mg PO DAILY 01/09/23 02/14/24 apixaban 2.5 mg tablet (Eliquis) 2.5 mg PO BID 02/14/24 02/14/24 finasteride 5 mg tablet 5 mg PO DAILY 02/14/24 02/14/24 lorazepam 0.5 mg tablet mg PO 02/14/24 02/14/24 triamcinolone acetonide 0.1 % 1 applic topical 02/14/24 02/14/24 topical cream Previous Rx's Medication Instructions Recorded fluconazole 150 mg tablet 150 mg PO DAILY #3 tabs 05/26/24 oxycodone-acetaminophen 5 mg-325 1 tab PO Q6H PRN pain #10 tabs 05/26/24 mg tablet tamsulosin 0.4 mg capsule (Flomax) 0.4 mg PO DAILY #30 caps 05/26/24 Allergies Allergy/AdvReac Type Severity Reaction Status Date / Time amoxicillin AdvReac Unknown Nausea Verified 05/26/24 16:36 meperidine [From Demerol] AdvReac Unknown Vomiting Verified 05/26/24 16:36 Review of Systems <Jet Adams DO - Last Filed: 06/05/24 17:59> Review of Systems ROS Unobtainable: All systems reviewed & are unremarkable except as noted in HPI and below Patient History <Jet Adams DO - Last Filed: 06/05/24 17:59> Medical History Benign prostatic hyperplasia Type 2 diabetes mellitus Port-A-Cath in place Malignant pleural effusion Former cigarette smoker COPD (chronic obstructive pulmonary disease) Lung cancer Social History household members: spouse Smoking Status: Former smoker Smoking Status: Former smoker alcohol intake frequency: a few times a week Substance Use Type: does not use Exam <Jet Adams DO - Last Filed: 06/05/24 17:59> Initial Vital Signs Initial Vital Signs: Vital Signs Temperature 98.3 F 05/26/24 16:36 Pulse Rate 79 05/26/24 16:36 Respiratory Rate 17 05/26/24 16:36 Blood Pressure 184/98 H 05/26/24 16:36 Pulse Oximetry 93 05/26/24 16:36 Oxygen Delivery Method Room Air 05/26/24 16:36 Const General: cooperative, comfortable and No ill appearing [facility] Head: normal to inspection and normocephalic Resp Effort & Inspection: normal respiratory effort Cardio Rate: regular rate GI Inspection: non-distended Palpation: soft and No tender Skin General: no rashes or lesions noted Neuro General: patient alert, patient awake and moves all extremities Extrem General: normal to inspection and capillary refill normal <Libia Joy MD - Last Filed: 05/27/24 03:23> Initial Vital Signs Initial Vital Signs: Vital Signs Temperature 98.3 F 05/26/24 16:36 Pulse Rate 79 05/26/24 16:36 Respiratory Rate 17 05/26/24 16:36 Blood Pressure 184/98 H 05/26/24 16:36 Pulse Oximetry 93 05/26/24 16:36 Oxygen Delivery Method Room Air 05/26/24 16:36 Course <Jet Adams DO - Last Filed: 06/05/24 17:59> Orders Ordered: Discontinued Medications Ketorolac Tromethamine (Ketorolac 30 Mg/Ml Vial) 15 mg IV NOW ONE Stop: 05/26/24 16:43 Last Admin: 05/26/24 17:02 Dose: 15 mg Documented By: RLS Ondansetron HCl (Ondansetron 4 Mg/2 Ml Inj) 4 mg IV NOW ONE Stop: 05/26/24 16:43 Last Admin: 05/26/24 17:01 Dose: 4 mg Documented By: RLS Oxycodone/Acetaminophen (Oxycodone/Apap 5/325 Prepack) 1 bottle MISC DIRECTED ONE Stop: 05/26/24 19:45 Last Admin: 05/26/24 19:50 Dose: 1 bottle Documented By: SB Vital Signs Vital signs: Vital Signs - 8 hr 05/26/24 19:40 Pulse Rate 79 Respiratory Rate 16 Blood Pressure 170/86 H Pulse Oximetry 97 Oxygen Delivery Method Room Air <Libia Joy MD - Last Filed: 05/27/24 03:23> Orders Ordered: Discontinued Medications Ketorolac Tromethamine (Ketorolac 30 Mg/Ml Vial) 15 mg IV NOW ONE Stop: 05/26/24 16:43 Last Admin: 05/26/24 17:02 Dose: 15 mg Documented By: RLS Ondansetron HCl (Ondansetron 4 Mg/2 Ml Inj) 4 mg IV NOW ONE Stop: 05/26/24 16:43 Last Admin: 05/26/24 17:01 Dose: 4 mg Documented By: RLS Oxycodone/Acetaminophen (Oxycodone/Apap 5/325 Prepack) 1 bottle MISC DIRECTED ONE Stop: 05/26/24 19:45 Last Admin: 05/26/24 19:50 Dose: 1 bottle Documented By: SB Vital Signs Vital signs: Vital Signs - 8 hr 05/26/24 19:40 Pulse Rate 79 Respiratory Rate 16 Blood Pressure 170/86 H Pulse Oximetry 97 Oxygen Delivery Method Room Air MDM - Back Pain/Injury <Jet Adams, DO - Last Filed: 06/05/24 17:59> Lab Data Attestation: I reviewed the patient's lab results. 05/26/24 16:52 05/26/24 16:52 Labs: Lab Results 05/26/24 05/26/24 Range/Units 16:52 17:20 WBC 12.6 H (4.5-11.0) X10^3/uL RBC 4.88 (4.5-5.9) X10^6/uL Hgb 14.6 (13.5-17.5) g/dL Hct 43.7 (41-53) % MCV 89.4 (80-100) fL MCH 29.9 (26-34) PG MCHC 33.4 (30-36) % RDW 14.7 (11.6-14.8) % Plt Count 424 H (150-400) X10^3/uL Neut % (Auto) 75.4 H (50-75) % Lymph % (Auto) 14.0 L (25-40) % [place] % (Auto) 7.7 (3-14) % Eos % (Auto) 1.9 L (2-4) % Baso % (Auto) 1.0 (0-2) % Neut # (Auto) 9500 H (5413-0395) /uL Lymph # (Auto) 1800 (3762-6553) /uL [place] # (Auto) 1000 H (0-900) /uL Eos # (Auto) 200 (0-450) /uL Baso # (Auto) 100 (0-100) /uL Sodium 140 (137-145) mmol/L Potassium 3.9 (3.4-5.1) mmol/L Chloride 105 (98-107) mmol/L Carbon Dioxide 27 (22-32) mmol/L BUN 22 H (9-20) mg/dL Creatinine 1.09 (0.66-1.25) mg/dL Estimated GFR > 60 (>60) mL/min BUN/Creatinine Ratio 20.2 (6-22) Glucose 141 H (80-110) mg/dL Calcium 9.4 (8.4-10.2) mg/dL Urine RBC >100/hpf H (0-5/HPF) Urine WBC None seen (0-5/HPF) Ur Squamous Epith Cells None seen (0-5/HPF) Urine Bacteria None seen (None) Urine Yeast 1-5/hpf H (None) Ur Culture Indicated? Specimen cultured Vol Urine Centrifuged 10ml (spun) Urine Dip Bedside Urine Glucose Negative Bedside Urine Bilirubin - Negative Bedside Urine Ketone +/- 5 Urine Specific [place] 1.030 Bedside Urine Occult Blood +++ Bedside Urine pH 5.5 Bedside Urine Protein ++ 100 Bedside Urine Urobilinogen - Negative Bedside Urine Nitrite - Negative Bedside Urine Leukocytes + 70 Esterase MDM Narrative Medical decision making narrative: Patient has a history of kidney stone. He states that his symptoms today are very consistent with prior stones. Kidney functions unremarkable. Does have blood in his urine. It was able to see the order from his CT scan that he was supposed to have tomorrow. He was supposed to have a IVP CT for hematuria. This does include a noncontrasted study so we will obtain this study today to evaluate for stones. Care turned over to Dr. Joy at change of shift to follow up and disposition. <Libia Joy MD - Last Filed: 05/27/24 03:23> Lab Data Labs: Lab Results 05/26/24 05/26/24 Range/Units 16:52 17:20 WBC 12.6 H (4.5-11.0) X10^3/uL RBC 4.88 (4.5-5.9) X10^6/uL Hgb 14.6 (13.5-17.5) g/dL Hct 43.7 (41-53) % MCV 89.4 (80-100) fL MCH 29.9 (26-34) PG MCHC 33.4 (30-36) % RDW 14.7 (11.6-14.8) % Plt Count 424 H (150-400) X10^3/uL Neut % (Auto) 75.4 H (50-75) % Lymph % (Auto) 14.0 L (25-40) % [place] % (Auto) 7.7 (3-14) % Eos % (Auto) 1.9 L (2-4) % Baso % (Auto) 1.0 (0-2) % Neut # (Auto) 9500 H (0841-2599) /uL Lymph # (Auto) 1800 (0252-6031) /uL [place] # (Auto) 1000 H (0-900) /uL Eos # (Auto) 200 (0-450) /uL Baso # (Auto) 100 (0-100) /uL Sodium 140 (137-145) mmol/L Potassium 3.9 (3.4-5.1) mmol/L Chloride 105 (98-107) mmol/L Carbon Dioxide 27 (22-32) mmol/L BUN 22 H (9-20) mg/dL Creatinine 1.09 (0.66-1.25) mg/dL Estimated GFR > 60 (>60) mL/min BUN/Creatinine Ratio 20.2 (6-22) Glucose 141 H (80-110) mg/dL Calcium 9.4 (8.4-10.2) mg/dL Urine RBC >100/hpf H (0-5/HPF) Urine WBC None seen (0-5/HPF) Ur Squamous Epith Cells None seen (0-5/HPF) Urine Bacteria None seen (None) Urine Yeast 1-5/hpf H (None) Ur Culture Indicated? Specimen cultured Vol Urine Centrifuged 10ml (spun) Urine Dip Bedside Urine Glucose Negative Bedside Urine Bilirubin - Negative Bedside Urine Ketone +/- 5 Urine Specific [place] 1.030 Bedside Urine Occult Blood +++ Bedside Urine pH 5.5 Bedside Urine Protein ++ 100 Bedside Urine Urobilinogen - Negative Bedside Urine Nitrite - Negative Bedside Urine Leukocytes + [address] scan - abdomen/pelvis: Radiologist's Impression: PROCEDURE: CT IVP A/P W/WO INDICATIONS: hematuria probable acute ureteral stone TECHNIQUE: Optional 5 mm thick noncontrast images acquired from the diaphragm to the symphysis pubis. After the administration of intravenous contrast, 5 mm thick images acquired from the diaphragm to the symphysis pubis after a 10-minute delay. 2 mm thick coronal and sagittal reformats were then performed of the kidneys and ureters. For radiation dose reduction, the following was used: automated exposure control, adjustment of mA and/or kV according to patient size. COMPARISON: None. FINDINGS: Lower thorax: Left basilar pleural thickening and atelectasis. Bilateral chronic interstitial changes. Liver: Normal in size and attenuation. No contour deformity present. Biliary system: No calcified cholelithiasis or pericholecystic inflammation. No intra or extrahepatic bile duct dilatation. Pancreas: Unremarkable without mass or inflammation evident. Spleen: Normal in size and density. Adrenals: Normal morphology and density. Reproductive system: Prostate enlargement elevates the bladder floor Urinary system: Bilateral renal cysts measure up to 8.3 cm on the left. Nonobstructing calcification on the right measures 7 mm and 2 mm on the left. Bilateral renal scarring and renal cortical thinning. 5 mm calculus in the left proximal ureter results in mild left hydronephrosis Gastrointestinal system: The bowel is unremarkable without evidence of bowel obstruction or inflammation. The stomach appears unremarkable. Appendix: No findings to suggest acute appendicitis. Peritoneal spaces: No mesenteric or retroperitoneal adenopathy. No free air. No free fluid. Vasculature: Aortic atherosclerotic vascular calcification noted without evidence of aneurysm. Abdominal wall: Abdominal wall intact without evidence of ventral or inguinal hernias. Musculoskeletal: Normal bone mineralization. Degenerative disc disease and arthropathy noted in lower lumbar spine. No acute fractures. IMPRESSION: Mild left hydronephrosis results from 5 mm calculus in the proximal left ureter. Additional nonobstructing bilateral renal calculi Approved by: Sai Milligan M.D. on 05/26/2024 at 18:03 MDM Narrative Medical decision making narrative: Patient has a history of kidney stone. He states that his symptoms today are very consistent with prior stones. Kidney functions unremarkable. Does have blood in his urine. It was able to see the order from his CT scan that he was supposed to have tomorrow. He was supposed to have a IVP CT for hematuria. This does include a noncontrasted study so we will obtain this study today to evaluate for stones. Care turned over to Dr. Joy at change of shift to follow up and disposition. Dr. Joy -care of patient is signed out to me by daytime physician. Independent review of patient and chart performed by myself. Patient's pain is well controlled, laboratory work is reviewed, kidney function normal. CT scan shows 5 mm calculus in the left proximal ureter. Patient and informed of labs and imaging at bedside. They have urology follow up scheduled within the next 5 days. Pain medications, Flomax sent to pharmacy of choice. Patient already has Zofran at home. In addition there was some yeast seen on UA. Patient was not having any symptoms of yeast infection, but since he does have a stone present we will treat empirically with fluconazole. Discharge Plan Departure Patient Disposition: Home Clinical Impression: Bilateral renal colic, Yeast UTI Instructions: Kidney Stones -- Adult Activity Restrictions/Additional Instructions: You have a 5 mm kidney stone on the left-hand side. This may be contributing to the blood UC in your urine. I am going to restart you on Flomax to help pass the kidney stone. You may use your nausea medication at home as needed. Pain medications have also been sent to your pharmacy. Do not take this medication with alcohol or before driving as this may cause drowsiness and puts you at risk for falling or accidents. This medication causes constipation, take a daily stool softener with this medication. You also had yeast in her urine. I am going to send a short course of yeast medications to your pharmacy. Make sure that you keep your urology appointment this week as scheduled. Prescriptions: New oxycodone-acetaminophen 5-325 mg tablet 1 tab PO Q6H PRN (Reason: pain) Qty: 10 0RF tamsulosin [Flomax] 0.4 mg capsule 0.4 mg PO DAILY Qty: 30 0RF fluconazole 150 mg tablet 150 mg PO DAILY Qty: 3 0RF No Action triamcinolone acetonide 0.1 % cream 1 applic topical finasteride 5 mg tablet 5 mg PO DAILY Eliquis 2.5 mg tablet 2.5 mg PO BID lorazepam 0.5 mg tablet PO metformin 500 mg tablet 500 mg PO BID Patient Comments: take 1 tablet by mouth twice a day ondansetron HCl 8 mg Tablet 8 mg PO Q8H PRN (Reason: Nausea) albuterol sulfate 90 mcg/actuation Hfa Aerosol Inhaler 2 inh INHALATION QID PRN (Reason: sob) Eliquis 5 mg tablet 5 mg PO BID Patient Comments: TAKE 1 TABLET BY MOUTH TWICE DAILY fluticasone furoate-vilanterol [Breo Ellipta] 100-25 mcg/dose blister with device 1 ea INHALATION DAILY Patient Comments: INHALE 1 PUFF INTO THE LUNGS DAILY ergocalciferol (vitamin D2) 50 mcg (2,000 unit) Capsule 50 mcg PO DAILY dexamethasone 4 mg Tablet 4 mg PO DAILY Referrals: Miscellaneous,Doctor, MD [Primary Care Provider] - Stand Alone Forms: Patient Portal/API/Survey
--- NOTE | 2024-05-26 16:56 | DI.CT.S_ITS ---
PROCEDURE: CT IVP A/P W/WO INDICATIONS: hematuria probable acute ureteral stone TECHNIQUE: Optional 5 mm thick noncontrast images acquired from the diaphragm to the symphysis pubis. After the administration of intravenous contrast, 5 mm thick images acquired from the diaphragm to the symphysis pubis after a 10-minute delay. 2 mm thick coronal and sagittal reformats were then performed of the kidneys and ureters. For radiation dose reduction, the following was used: automated exposure control, adjustment of mA and/or kV according to patient size. COMPARISON: None. FINDINGS: Lower thorax: Left basilar pleural thickening and atelectasis. Bilateral chronic interstitial changes. Liver: Normal in size and attenuation. No contour deformity present. Biliary system: No calcified cholelithiasis or pericholecystic inflammation. No intra or extrahepatic bile duct dilatation. Pancreas: Unremarkable without mass or inflammation evident. Spleen: Normal in size and density. Adrenals: Normal morphology and density. Reproductive system: Prostate enlargement elevates the bladder floor Urinary system: Bilateral renal cysts measure up to 8.3 cm on the left. Nonobstructing calcification on the right measures 7 mm and 2 mm on the left. Bilateral renal scarring and renal cortical thinning. 5 mm calculus in the left proximal ureter results in mild left hydronephrosis Gastrointestinal system: The bowel is unremarkable without evidence of bowel obstruction or inflammation. The stomach appears unremarkable. Appendix: No findings to suggest acute appendicitis. Peritoneal spaces: No mesenteric or retroperitoneal adenopathy. No free air. No free fluid. Vasculature: Aortic atherosclerotic vascular calcification noted without evidence of aneurysm. Abdominal wall: Abdominal wall intact without evidence of ventral or inguinal hernias. Musculoskeletal: Normal bone mineralization. Degenerative disc disease and arthropathy noted in lower lumbar spine. No acute fractures. IMPRESSION: Mild left hydronephrosis results from 5 mm calculus in the proximal left ureter. Additional nonobstructing bilateral renal calculi Approved by: Sai Milligan M.D. on 05/26/2024 at 18:03
[2024-05-26] MEDS: ONDANSETRON 4 MG/2 ML INJ IV (17:01)
[2024-05-26] MEDS: KETOROLAC 30 MG/ML VIAL 15 MG IV (17:02)
[2024-05-26 17:05] LABS: Add Manual Diff / Slide Review NO; Basophils Absolute Auto 100 /uL (0-100); Eosinophils Absolute Auto 200 /uL (0-450); Eosinophils Percent Auto 1.9 % (2-4); Hematocrit 43.7 % (41-53); Hemoglobin 14.6 g/dL (13.5-17.5); Lymphocytes Absolute Auto 1800 /uL (1100-4500); Mean Corpuscular HGB Conc 33.4 % (30-36); Mean Corpuscular Hemoglobin 29.9 PG (26-34); Mean Corpuscular Volume 89.4 fL (80-100); Monocytes Absolute Auto 1000 /uL (0-900); Monocytes Percent Auto 7.7 % (3-14); Neutrophils Absolute Auto 9500 /uL (1500-7000); Neutrophils Percent Auto 75.4 % (50-75); Platelet Count 424 X10^3/uL (150-400); Red Blood Cell Count 4.88 X10^6/uL (4.5-5.9); Red Cell Distribution Width 14.7 % (11.6-14.8); White Blood Cell Count 12.6 X10^3/uL (4.5-11.0)
[2024-05-26 17:11] LABS: BUN Creatinine Ratio 20.2 (6-22); Blood Urea Nitrogen 22 mg/dL (9-20); Calcium 9.4 mg/dL (8.4-10.2); Carbon Dioxide 27 mmol/L (22-32); Chloride 105 mmol/L (98-107); Estimated Glomerular Filt Rate > 60 mL/min (>60); Glucose 141 mg/dL (80-110); HEMOLYSIS < 15 (0-50); Potassium 3.9 mmol/L (3.4-5.1); Sodium 140 mmol/L (137-145)
[2024-05-26 17:59] VITALS: BP 179/86; PULSE 78; O2SAT 96
[2024-05-26 18:03] LABS: RBC Urine >100/HPF (0-5/HPF); Urine Volume 10mL (spun)
[2024-05-26 18:04] LABS: Bacteria Urine None Seen; Culture Indicated Urine Specimen Cultured; Squamous Epithelial Cell Urine None Seen (0-5/HPF); WBC Urine None Seen (0-5/HPF)
[2024-05-26 19:40] VITALS: BP 170/86; PULSE 79; RESP 16; O2SAT 97
[2024-05-26] MEDS: OXYCODONE/APAP 5/325 PREPACK 1 BOTTLE MISC (19:50)
== END 2024-05-26 19:52 | disposition home or self-care (01) ==
PROVIDERS: Emergency Medicine; Emergency Provider Emergency Medicine
DX: N23 Unspecified renal colic (principal); N20.0 Calculus of kidney; B37.49 Other urogenital candidiasis; Z79.01 Long term (current) use of anticoagulants; Z87.442 Personal history of urinary calculi
CPT/HCPCS: 36415; 74178; 80048; 81003; 81015; 85025; 87086; 96374; 96375; 99284; J1885; J2405; Q9967